=== PATIENT | female | born 1985 | race Caucasian/White ===

== ENCOUNTER 2016-10-16 05:55 | Inpatient (IN) | payer MEDICAID ==
[2016-10-16] VITALS (9 sets, daily range): BP systolic 126–194; BP diastolic 74–110; PULSE 82–99; RESP 16–20; TEMP 97.5–98.4; O2SAT 96–100
[~2016-10-16] VITALS: Ht 170.2 cm; Wt 98.0 kg
[2016-10-16] MEDS ORDERED: SODIUM CHLOR 0.9% 1000 ML INJ 1,000 ML IV SCH (06:19)
[2016-10-16] MEDS ORDERED: KETOROLAC TROMETHAMINE 30 MG/ML (IVP) VIAL IVP ONE (06:30)
[2016-10-16] MEDS ORDERED: ONDANSETRON HCL 4 MG/2 ML VIAL IVP ONE (06:30)
[2016-10-16] MEDS ORDERED: SODIUM CHLORIDE 0.9% FLUSH 10 ML FLUSH IV FLUSH PRN (06:30)
[2016-10-16 06:43] LABS: AUTOMATED NEUTROPHIL # 11.6 TH/MM3 (1.8-7.7); BASOPHIL # 0.1 TH/MM3 (0-0.2); BASOPHIL % 0.5 % (0.0-2.0); EOSINOPHIL # 0.2 TH/MM3 (0-0.4); EOSINOPHIL % 1.1 % (0.0-4.0); HEMATOCRIT 40.8 % (35.0-46.0); HEMO FLAGS DIFF FINAL; LYMPH % 12.2 % (9.0-44.0); LYMPHOCYTE # 1.7 TH/MM3 (1.0-4.8); MEAN CELL VOLUME 85.6 FL (80.0-100.0); MEAN CORPUSCULAR HEMOGLOBIN 28.6 PG (27.0-34.0); MEAN CORPUSCULAR HGB CONC 33.4 % (32.0-36.0); MONO % 4.2 % (0.0-8.0); PLATELET COUNT 192 TH/MM3 (150-450); RED BLOOD COUNT 4.77 MIL/MM3 (4.00-5.30); RED CELL DISTRIBUTION WIDTH 13.7 % (11.6-17.2); WHITE BLOOD COUNT 14.1 TH/MM3 (4.0-11.0)
--- NOTE | 2016-10-16 06:43 | PD ---
HPI Chief Complaint: Flank/Kidney Pain Time Seen by Provider: 06:01 Travel History International Travel<30 days: No Contact w/Intl Traveler<30days: No Traveled to known affect area: No History of Present Illness HPI Patient is a 30-year-old female presents emergency Department with right flank pain. Patient states she has a history of kidney stones and had a CAT scan and lithotripsy in July of this year. Patient states that there were 2 small fragments lithotripsy which were left in place. She states the pain started last night and she was unable to sleep, it was mild nausea and no fever no dysuria. She denies any vaginal bleeding or vaginal discharge. States his pain is moderate to severe. Gradually worsening. [facility] Past Medical History Kidney Stones: Yes Integumentary: Yes ?: Not LMP: 10/16/16 Past Surgical History Other Surgery: Yes (lithotripsy ) Social History Alcohol Use: Yes Tobacco Use: No Substance Use: Yes (marijuana ) Allergies-Medications (Allergen,Severity, Reaction): Coded Allergies: No Known Allergies (Unverified , 10/16/16) Reported Meds & Prescriptions Reported Meds & Active Scripts Active No Active Prescriptions or Reported Medications Review of Systems Except as stated in HPI: all other systems reviewed are Neg Physical Exam Narrative GENERAL: Well-developed well-nourished, appears minimally uncomfortable in no obvious distress. SKIN: Focused skin assessment warm/dry. HEAD: Atraumatic. Normocephalic. EYES: Pupils equal and round. No scleral icterus. No injection or drainage. ENT: No nasal bleeding or discharge. Mucous membranes pink and moist. NECK: Trachea midline. No JVD. CARDIOVASCULAR: Regular rate and rhythm. No murmur appreciated. RESPIRATORY: No accessory muscle use. Clear to auscultation. Breath sounds equal bilaterally. GASTROINTESTINAL: Abdomen soft, non-tender, nondistended. Hepatic and splenic margins not palpable. Minimal right-sided CVA tenderness. Abdomen is otherwise benign. MUSCULOSKELETAL: No obvious deformities. No clubbing. No cyanosis. No edema. NEUROLOGICAL: Awake and alert. No obvious cranial nerve deficits. Motor grossly within normal limits. Normal speech. PSYCHIATRIC: Appropriate mood and affect; insight and judgment normal. Data Data Last Documented VS Vital Signs Date Time Temp Pulse Resp B/P Pulse Ox O2 Delivery O2 Flow Rate FiO2 10/16/16 06:25 99 Room Air 10/16/16 05:56 98.0 87 194/110 Orders Urinalysis - C+S If Indicated (10/16/16 06:01) Ed Urine Pregnancytest Poc (10/16/16 06:01) Complete Blood Count With Diff (10/16/16 06:19) Comprehensive Metabolic Panel (10/16/16 06:19) Iv Access Insert/Monitor (10/16/16 06:19) Ecg Monitoring (10/16/16 06:19) Oximetry (10/16/16 06:19) Ondansetron Inj (Zofran Inj) (10/16/16 06:30) Sodium Chlor 0.9% 1000 Ml Inj (Ns 1000 M (10/16/16 06:19) Sodium Chloride 0.9% Flush (Ns Flush) (10/16/16 06:30) Ketorolac Inj (Toradol Inj) (10/16/16 06:30) Ct Abd/Pel W/O Iv Contrast (10/16/16 ) MDM Medical Decision Making Medical Screen Exam Complete: Yes Emergency Medical Condition: Yes Differential Diagnosis Kidney stone, UTI, polynephritis, obstructive uropathy. Narrative Course Patient roomed in the emergency department, given Toradol after test negative. She is requesting more for pain medicine at this point she has indications for CAT scan is thus ordered. Basic labs and UA are pending at 07 100 shift change. The patient was discussed with the oncoming provider Dr. Palafox to follow-up patient's workup and disposition her appropriately. Scripts No Active Prescriptions or Reported Meds Selvin Stringer MD Oct 16, 2016 06:43
[2016-10-16] MEDS ORDERED: MORPHINE SULFATE 8 MG/ML INJ IV PUSH ONE (07:00)
[2016-10-16 07:09] LABS: ANION GAP 8 MEQ/L (5-15); AST (GOT) 13 U/L (15-37); BLOOD UREA NITROGEN 15 MG/DL (7-18); CHLORIDE 108 MEQ/L (98-107); GLOMERULAR FILTRATION RATE 61 ML/MIN (>89); POTASSIUM 3.8 MEQ/L (3.5-5.1); SODIUM (NA) 139 MEQ/L (136-145)
--- NOTE | 2016-10-16 07:09 | RADRPT ---
EXAM DATE/TIME: 10/16/2016 06:43 [facility] COMPARISON: No previous studies available for comparison. INDICATIONS : Right flank pain. ORAL CONTRAST: No oral contrast ingested. RADIATION DOSE: 8.43 CTDIvol (mGy) MEDICAL HISTORY : Renal calculi. SURGICAL HISTORY : None. ENCOUNTER: Initial ACUITY: 1 day PAIN SCALE: 4/10 LOCATION: Right flank TECHNIQUE: Volumetric scanning of the abdomen and pelvis was performed. Using automated exposure control and ad justment of the mA and/or kV according to patient size, radiation dose was kept as low as reasonably achievable to obtain optimal diagnostic quality images. DICOM format image data is available electro nically for review and comparison. FINDINGS: Right side: Abnormal there is enlargement of the right kidney, perigastric and duration, severe hydronephrosis an d an obstructing stone in the region of the ureteropelvic junction measuring 1.0 cm in dimension. Th ere are also 2 calcified stones in the right pelvis, in the expected location of the distal right ure ter, measuring 5 mm and 4 mm. Left side: There is a nonobstructing stone in the lower pole measuring 3 mm. The left ureter is normal in dimen emilia without calcified stones. Bladder: Smooth contour. No calcifications within the lumen. Other: No dilated loops of small or large bowel. No calcified gallstones. The abdominal aorta is normal di mension. CONCLUSION: Abnormal renal colic scan demonstrating severe right-sided hydronephrosis and induration of the perin ephric fat with 3 obstructing stones,, one located at the ureteropelvic junction and 2 in the distal right ureter. Bigg Marcano MD on October 16, 2016 at 7:02 Board Certified Radiologist. This report was verified electronically.
[2016-10-16 07:12] LABS: ALKALINE PHOSPHATASE 87 U/L (45-117); ALT (GPT) 25 U/L (10-53); TOTAL BILIRUBIN ADULT 0.3 MG/DL (0.2-1.0)
--- NOTE | 2016-10-16 07:25 | PD ---
Physical Exam Date Seen by Provider: Oct 16, 2016 Time Seen by Provider: 07:25 Narrative 30-year-old female came to the emergency room with history of right flank pain that started last night. Patient has history of recurrent kidney stones. She had a lithotripsy done in June by her urologist from [place]. Patient is here visiting her parents. She was seen by the previous ER physician. Please refer to his notes regarding further details and history and physical. Case was signed out to me to follow-up on the CAT scan and blood test results. CAT scan shows a large 1 cm stone at the UPJ with significant perinephric stranding and obstruction. There are 2 further stones in the distal ureter near UVJ that are 4 mm and 5 mm each respectively. Patient continues to be in pain. I discussed the case with Dr. Ramirez who is on for urology. He wants the patient admitted for pain control and the medical service and he will consult on the patient. Awaiting for the hospitalist to call back. Patient and her mother were told about the findings and the plan and they're in agreement. Data Data Last Documented VS Vital Signs Date Time Temp Pulse Resp B/P Pulse Ox O2 Delivery O2 Flow Rate FiO2 10/16/16 07:20 18 10/16/16 07:11 82 183/109 98 10/16/16 06:25 Room Air 10/16/16 05:56 98.0 Orders Urinalysis - C+S If Indicated (10/16/16 06:01) Ed Urine Pregnancytest Poc (10/16/16 06:01) Complete Blood Count With Diff (10/16/16 06:19) Comprehensive Metabolic Panel (10/16/16 06:19) Iv Access Insert/Monitor (10/16/16 06:19) Ecg Monitoring (10/16/16 06:19) Oximetry (10/16/16 06:19) Ondansetron Inj (Zofran Inj) (10/16/16 06:30) Sodium Chlor 0.9% 1000 Ml Inj (Ns 1000 M (10/16/16 06:19) Sodium Chloride 0.9% Flush (Ns Flush) (10/16/16 06:30) Ketorolac Inj (Toradol Inj) (10/16/16 06:30) Ct Abd/Pel W/O Iv Contrast (10/16/16 ) Morphine Inj (Morphine Inj) (10/16/16 07:00) Consult Urology (10/16/16 ) Diet Npo (10/16/16 Breakfast) Vital Signs (Adult) LAUREN.Q4H (10/16/16 07:50) Sodium Chlor 0.9% 1000 Ml Inj (Ns 1000 M (10/16/16 08:00) Ondansetron Inj (Zofran Inj) (10/16/16 08:00) Hydromorphone Pf Inj (Dilaudid Pf Inj) (10/16/16 08:00) Admit Order (Ed Use Only) (10/16/16 07:52) Labs Laboratory Tests Test 10/16/16 10/16/16 06:07 06:25 Urine Color RED Urine Turbidity CLOUDY Urine pH 6.0 Urine Specific [place] 1.009 Urine Protein 30 mg/dL Urine Glucose (UA) NEG mg/dL Urine Ketones NEG mg/dL Urine Occult Blood MOD Urine Nitrite NEG Urine Bilirubin NEG Urine Urobilinogen LESS THAN 2.0 MG/DL Urine Leukocyte Esterase TRACE Urine RBC /hpf Urine WBC 6 /hpf Urine Squamous Epithelial 1 /hpf Cells Urine Bacteria OCC /hpf Microscopic Urinalysis Comment CULT NOT INDICATED White Blood Count 14.1 TH/MM3 Red Blood Count 4.77 MIL/MM3 Hemoglobin 13.6 GM/DL Hematocrit 40.8 % Mean Corpuscular Volume 85.6 FL Mean Corpuscular Hemoglobin 28.6 PG Mean Corpuscular Hemoglobin 33.4 % Concent Red Cell Distribution Width 13.7 % Platelet Count 192 TH/MM3 Mean Platelet Volume 9.9 FL Neutrophils (%) (Auto) 82.0 % Lymphocytes (%) (Auto) 12.2 % Monocytes (%) (Auto) 4.2 % Eosinophils (%) (Auto) 1.1 % Basophils (%) (Auto) 0.5 % Neutrophils # (Auto) 11.6 TH/MM3 Lymphocytes # (Auto) 1.7 TH/MM3 Monocytes # (Auto) 0.6 TH/MM3 Eosinophils # (Auto) 0.2 TH/MM3 Basophils # (Auto) 0.1 TH/MM3 CBC Comment DIFF FINAL Differential Comment Sodium Level 139 MEQ/L Potassium Level 3.8 MEQ/L Chloride Level 108 MEQ/L Carbon Dioxide Level 23.0 MEQ/L Anion Gap 8 MEQ/L Blood Urea Nitrogen 15 MG/DL Creatinine 1.05 MG/DL Estimat Glomerular Filtration 61 ML/MIN Rate Random Glucose 97 MG/DL Calcium Level 9.3 MG/DL Total Bilirubin 0.3 MG/DL Aspartate Amino Transf 13 U/L (AST/SGOT) Alanine Aminotransferase 25 U/L (ALT/SGPT) Alkaline Phosphatase 87 U/L Total Protein 7.4 GM/DL Albumin 3.7 GM/DL MDM Supervised Visit with KERRY: No Physician Communication Physician Communication Dr. Ramirez Diagnosis Primary Impression: Renal colic on left side Additional Impressions: Ureteral calculi Intractable pain Hydronephrosis Qualified Code: Q62.0 - Hydronephrosis with ureteropelvic junction (UPJ) obstruction Admitting Information Admitting Physician Requests: Admit Scripts No Active Prescriptions or Reported Meds Aidee Palafox MD Oct 16, 2016 07:25
[2016-10-16 07:58] LABS: BACTERIA, URINE OCC /hpf; BLOOD, URINE MOD (NEG); COMMENT (UR) CULT NOT INDICATED; CULTURE IF INDICATED CULT NOT INDICATED; GLUCOSE,URINE NEG (NEG); KETONE, URINE NEG (NEG); NITRITE,URINE NEG (NEG)
[2016-10-16 07:59] LABS: URINE COLOR RED (YELLW/STRAW)
[2016-10-16 08:00] LABS: SQUAMOUS EPITHELIAL CELL URINE 1 /hpf (0-5)
[2016-10-16] MEDS ORDERED: ONDANSETRON HCL 4 MG/2 ML VIAL IV PUSH PRN (08:00)
[2016-10-16] MEDS: HYDROmorphone HCL PF 1 MG/ML VIAL IV PUSH PRN ×2 (08:49→08:58)
--- NOTE | 2016-10-16 09:12 | HHI.HP ---
[facility] No Primary Care Physician Admission Diagnosis ureteral Calculi, renal colic, intractable pain Diagnoses: (1) Ureteral calculi Diagnosis: Principal (2) Hydronephrosis Diagnosis: Principal Chief Complaint: right flank pain Travel History International Travel<30 Days: No Contact w/Intl Traveler <30 Da: No Traveled to Known Affected Are: No History of Present Illness patient is a 30 y/o female with history of nephrolithiasis- s/p lithotripsy in June, presented to ER with right flank pain. she says that the pain started at 10 last night and gradually got worse over night to the extent that she decided to come to ER. she had some nausea and had an episode of emesis earlier today. she had some chills but no fever. she denies any dysuria. Review of Systems Constitutional: COMPLAINS OF: Chills, DENIES: Fever, Weight loss, Night Sweats Eyes: DENIES: Blurred vision, Diplopia, Vision loss, Double Vision Ears, nose, mouth, throat: DENIES: Tinnitus, Vertigo, Throat pain, Epistaxis Respiratory: DENIES: Apneas, Cough, Snoring, Wheezing, Hemoptysis, Sputum production, Shortness of breath Cardiovascular: DENIES: Chest pain, Palpitations, Syncope, Dyspnea on Exertion , PND, Lower Extremity Edema, Orthopnea, Claudication Gastrointestinal: COMPLAINS OF: Abdominal pain, Nausea, Vomiting, DENIES: Black stools, Bloody stools, Constipation, Diarrhea, Difficulty Swallowing, Anorexia Genitourinary: DENIES: Urinary frequency, Urgency, Hematuria, Dysuria Musculoskeletal: DENIES: Joint pain, Muscle aches, Stiffness, Joint Swelling Integumentary: DENIES: Rash Neurologic: DENIES: Abnormal gait, Headache, Localized weakness, Paresthesias, Seizures, Speech Problems, Tremor, Poor Balance Psychiatric: DENIES: Anxiety, Confusion, Mood changes, Depression, Hallucinations, Agitation, Suicidal Ideation, Homicidal Ideation, Delusions Past Family Social History Past Medical History nephrolithiasis psoriasis Past Surgical History lithotripsy Reported Medications none Allergies: Coded Allergies: No Known Allergies (Unverified , 10/16/16) Active Ordered Medications Current Medications Ondansetron HCl 4 mg 4 mg ONCE ONCE IVP Last administered on 10/16/16 06:28; Start 10/16/16 at 06:30; Stop 10/16/16 at 06:31; Status DC Sodium Chloride (NS 1000 ml Inj) 1,000 ml @ 1,000 mls/hr Q1H IV Last administered on 10/16/16 06:28; Start 10/16/16 at 06:19; Stop 10/16/16 at 07:18 ; Status DC Sodium Chloride (NS Flush) 2 ml UNSCH PRN IV FLUSH FLUSH AFTER USING IV ACCESS ; Start 10/16/16 at 06:30 Ketorolac Tromethamine (Toradol Inj) 30 mg ONCE ONCE IVP Last administered on 10/16/16 06:28; Start 10/16/16 at 06:30; Stop 10/16/16 at 06:31; Status DC Morphine Sulfate 6 mg 6 mg ONCE ONCE IV PUSH Last administered on 10/16/16 07 :13; Start 10/16/16 at 07:00; Stop 10/16/16 at 07:01; Status DC Sodium Chloride (NS 1000 ml Inj) 1,000 ml @ 100 mls/hr Q10H IV ; Start at 08:00 Ondansetron HCl (Zofran Inj) 4 mg Q8HR PRN IV PUSH NAUSEA; Start 10/16/16 at 08 :00 Hydromorphone HCl (Dilaudid Pf Inj) 0.5 mg Q4H PRN IV PUSH PAIN 1-10 Last administered on 10/16/16 08:58; Start 10/16/16 at 08:00 Family History not significant. Social History drinks occasionally- smokes pot occasionally. Physical Exam Vital Signs Vital Signs Date Time Temp Pulse Resp B/P Pulse Ox O2 Delivery O2 Flow Rate FiO2 10/16/16 08:33 83 18 146/94 99 Room Air 10/16/16 07:20 18 10/16/16 07:20 18 10/16/16 07:11 82 16 183/109 98 10/16/16 06:25 99 Room Air 10/16/16 05:56 98.0 87 194/110 100 Room Air Physical Exam GENERAL: This is a well-nourished, well-developed patient, in no apparent distress. SKIN: No rashes, ecchymoses or lesions. Cool and dry. HEAD: Atraumatic. Normocephalic. No temporal or scalp tenderness. EYES: Pupils equal round and reactive. Extraocular motions intact. No scleral icterus. No injection or drainage. ENT: Nose without bleeding, purulent drainage or septal hematoma. Throat without erythema, tonsillar hypertrophy or exudate. Uvula midline. Airway patent. NECK: Trachea midline. No JVD or lymphadenopathy. Supple, nontender, no meningeal signs. CARDIOVASCULAR: Regular rate and rhythm without murmurs, gallops, or rubs. RESPIRATORY: Clear to auscultation. Breath sounds equal bilaterally. No wheezes , rales, or rhonchi. GASTROINTESTINAL: Abdomen soft, non-tender, nondistended. No hepato-splenomegaly , or palpable masses. No guarding. MUSCULOSKELETAL:right flank tenderness. NEUROLOGICAL: Awake and alert. Cranial nerves II through XII intact. Motor and sensory grossly within normal limits. Five out of 5 muscle strength in all muscle groups. Normal speech. Laboratory Laboratory Tests Test 10/16/16 10/16/16 06:07 06:25 Urine Color RED Urine Turbidity CLOUDY Urine pH 6.0 Urine Specific [place] 1.009 Urine Protein 30 Urine Glucose (UA) NEG Urine Ketones NEG Urine Occult Blood MOD Urine Nitrite NEG Urine Bilirubin NEG Urine Urobilinogen LESS THAN 2.0 Urine Leukocyte Esterase TRACE Urine RBC Urine WBC 6 Urine Squamous Epithelial 1 Cells Urine Bacteria OCC Microscopic Urinalysis Comment CULT NOT INDICATED White Blood Count 14.1 Red Blood Count 4.77 Hemoglobin 13.6 Hematocrit 40.8 Mean Corpuscular Volume 85.6 Mean Corpuscular Hemoglobin 28.6 Mean Corpuscular Hemoglobin 33.4 Concent Red Cell Distribution Width 13.7 Platelet Count 192 Mean Platelet Volume 9.9 Neutrophils (%) (Auto) 82.0 Lymphocytes (%) (Auto) 12.2 Monocytes (%) (Auto) 4.2 Eosinophils (%) (Auto) 1.1 Basophils (%) (Auto) 0.5 Neutrophils # (Auto) 11.6 Lymphocytes # (Auto) 1.7 Monocytes # (Auto) 0.6 Eosinophils # (Auto) 0.2 Basophils # (Auto) 0.1 CBC Comment DIFF FINAL Differential Comment Sodium Level 139 Potassium Level 3.8 Chloride Level 108 Carbon Dioxide Level 23.0 Anion Gap 8 Blood Urea Nitrogen 15 Creatinine 1.05 Estimat Glomerular Filtration 61 Rate Random Glucose 97 Calcium Level 9.3 Total Bilirubin 0.3 Aspartate Amino Transf 13 (AST/SGOT) Alanine Aminotransferase 25 (ALT/SGPT) Alkaline Phosphatase 87 Total Protein 7.4 Albumin 3.7 Result Diagram: 10/16/16 0625 10/16/16 0625 Imaging Last Impressions Abdomen/Pelvis CT 10/16/16 0000 Signed Impressions: Service Date/Time: Sunday, October 16, 2016 06:43 - CONCLUSION: Abnormal renal colic scan demonstrating severe right-sided hydronephrosis and induration of the perinephric fat with 3 obstructing stones,, one located at the ureteropelvic junction and 2 in the distal right ureter. Bigg Marcano MD Assessment and Plan Assessment and Plan A/P - nephrolithiasis with severe right sided hydronephrosis keep NPO for now and start IV fluid- continue with pain control and antiemetics as needed. Urology consulted. -leukocytosis-likely reactive- afebrile- will monitor. -psoriasis- f/u as outpatient. Discussed Condition With ER physician and the patient. Problem Qualifiers (1) Hydronephrosis: Qualified Code: Q62.0 - Hydronephrosis with ureteropelvic junction (UPJ) obstruction Lori Stuart MD Oct 16, 2016 09:12
[2016-10-16] MEDS ORDERED: HYDROmorphone HCL PF 1 MG/ML VIAL IV PUSH PRN (09:15)
[2016-10-16] MEDS: SODIUM CHLOR 0.9% 1000 ML INJ 1,000 ML IV SCH ×2 (09:29→19:00)
[2016-10-16] MEDS ORDERED: PROPOFOL 200 MG/20 ML AMP IV ONE (12:00)
[2016-10-16] MEDS ORDERED: PHENYLEPH/NS 1000 MCG/10 ML SYR IV ONE (12:00)
[2016-10-16] MEDS ORDERED: ONDANSETRON HCL 4 MG/2 ML VIAL IV PUSH ONE (12:00)
--- NOTE | 2016-10-16 13:33 | MB ---
cc: BRIAN BAKER MD DATE OF CONSULTATION: 10/16/2016 REASON FOR CONSULTATION 1. Right ureteral calculi with hydronephrosis. 2. Right flank pain. HISTORY OF PRESENT ILLNESS The patient is a 30-year-old female with a longstanding history of kidney stones, who presented to the ER earlier this morning with complaints of sharp stabbing right flank pain radiating into her right groin since last night. She describes the pain as 10/10 at its worse. She also had subjective chills and nausea, vomiting earlier last night. She denied any dysuria or hematuria in the ER. She had a CT of the abdomen and pelvis without contrast done which showed several 4-5 mm stones in her distal right ureter as well as a 1 cm right UPJ stone with moderate hydronephrosis. She was admitted for pain control and urology was consulted. The patient states she recently had a lithotripsy in June in [place] and states she was stone-free at that time. She has had four episodes of stones in the past requiring surgery each time. She denies ever having a metabolic work-up for her stone disease. Her pain has slightly improved down to a 7/10 with the help of pain medication and her nausea has resolved. She has occasional urinary tract infections. REVIEW OF SYSTEMS See HPI; otherwise all systems reviewed are negative. PAST MEDICAL HISTORY 1. Psoriasis. 2. Nephrolithiasis. PAST SURGICAL HISTORY Lithotripsy. ALLERGIES No known drug allergies. MEDICATIONS Home medications are none. FAMILY HISTORY Denies urolithiasis or genitourinary malignancy. SOCIAL HISTORY She drinks occasionally and smokes pot occasionally. Denies tobacco use. PHYSICAL EXAMINATION VITAL SIGNS: Temperature 98.3, pulse 93, respiratory rate 16, BP 163/95, satting 100% on room air. GENERAL: This is an alert and oriented x3, in no apparent distress, pleasant cooperative lady who appears her stated age. HEAD: Normocephalic, atraumatic. EYES: No scleral icterus. Extraocular muscles intact. NECK: Supple. Trachea is midline. No JVD. SKIN: No ulcers or rashes. [place] and moist. LUNGS: Clear to auscultation bilaterally. No wheezes, rales or rhonchi. HEART: Regular rhythm. No murmurs, gallops or rubs. ABDOMEN: Soft, obese, nontender, nondistended. Positive bowel sounds. GENITOURINARY: No CVA tenderness bilaterally. Pelvic exam not indicates at this time. EXTREMITIES: Nontender. No clubbing, cyanosis or edema. PSYCH: Normal affect. NEUROLOGIC: Cranial nerves II through XII intact. Strength 5/5 in all four extremities. LABORATORY White count 14.1, hemoglobin 13.6, hematocrit 40.8, platelet count 192. Sodium 139, potassium 3.9, chloride 108, bicarb 23, BUN 15, creatinine 1.05. Urine showed pH 6.0, moderate blood, trace leukocyte esterase. IMAGING CT abdomen and pelvis without contrast: Images were reviewed. Agree with radiologist's report. The patient has multiple stones in her right ureter including two 5 mm distal stones as well as a 1 cm stone in her right UPJ with moderate hydronephrosis. ASSESSMENT The patient is a 30-year-old female with a longstanding history of kidney stones, who presents with acute onset of right flank pain and found to have multiple obstructing right ureteral calculi. PLAN Will keep the patient n.p.o. and schedule her for a cystoscopy, right uteroscopy, laser lithotripsy and stent placement under general anesthetic later today. I have discussed the risks, benefits, alternatives and potential complications of the procedure with her including inability to treat the stones, risk of recurrent stones, ureteral stricture, and superintendent terminal indwelling stent and possible nephrostomy tubes. She understands these risks. All questions were answered. Informed consent was obtained. Brian Baker MD EMKomal/AJSS /1:06 PM /1:14 PM
[2016-10-16] MEDS ORDERED: MIDAZOLAM HCL 2 MG/2 ML VIAL ONE (16:11)
[2016-10-16] MEDS ORDERED: HYDROmorphone HCL PF 2 MG/ML VIAL ONE ×2 (16:11→16:43)
[2016-10-16] MEDS ORDERED: FAMOTIDINE 20 MG/2 ML VIAL ONE (16:12)
[2016-10-16] MEDS ORDERED: DEXAMETHASONE SOD PHOS 4 MG/ML VIAL ONE (16:12)
[2016-10-16] MEDS ORDERED: ceFAZolin INJ 1,000 MG VIAL ONE (16:37)
[2016-10-16] MEDS ORDERED: ACETAMINOPHEN 1000 MG/100 ML VIAL IV ONE (16:42)
[2016-10-16] MEDS ORDERED: ceFAZolin INJ 1,000 MG VIAL IV ONE (17:06)
[2016-10-16] MEDS ORDERED: IOHEXOL 350 MG/ML 10 ML VIAL (for RAD DIAG) OTHER ONE (17:11)
--- NOTE | 2016-10-16 17:53 | PD.OP ---
Operative Report Date of Surgery: Oct 16, 2016 Preoperative Diagnosis: Right ureteral calculi with hydronephrosis Postoperative Diagnosis: Procedure: cystoscopy, right ureteroscopy, laser lithotripsy, stone removal, stent insertion; bladder biopsy with fulguration Surgeon: Brian Ramirez Rendering Equipment Tender(s): N/A Operation and Findings: all 3 ureteral calculi treated, fragments removed. Stent left to help with postoperative ureteral edema, small residual fragments within kidney multiple tiny lesions seen within bladder, likely cobblestoning related to UTI/ inflammation; small biopsy taken. Brian Ramirez MD Oct 16, 2016 17:53
[2016-10-16] MEDS ORDERED: BELLADONNA ALKALOIDS/OPIUM 60 MG SUPP RECTAL PRN (18:00)
[2016-10-16] MEDS: KETOROLAC TROMETHAMINE 30 MG/ML (IVP) VIAL IV PUSH SCH (18:45)
[2016-10-17] MEDS: KETOROLAC TROMETHAMINE 30 MG/ML (IVP) VIAL IV PUSH SCH ×4 (00:59→17:49)
[2016-10-17] MEDS: SODIUM CHLOR 0.9% 1000 ML INJ 1,000 ML IV SCH ×2 (04:00→15:58)
[2016-10-17 04:34] VITALS: BP 167/97; PULSE 80; RESP 20; TEMP 99.6; O2SAT 98
[2016-10-17] MEDS: ACETAMINOPHEN 325 MG TAB PO PRN ×2 (07:02→17:47)
--- NOTE | 2016-10-17 07:09 | RADRPT ---
EXAM DATE/TIME: 10/17/2016 06:48 [facility] COMPARISON: No previous studies available for comparison. INDICATIONS : Fever, cough. MEDICAL HISTORY : None. SURGICAL HISTORY : None. ENCOUNTER: Initial ACUITY: 1 day PAIN SCORE: 0/10 LOCATION: Bilateral chest FINDINGS: A single view of the chest demonstrates minimal consolidation in the left retrocardiac region atelect asis versus pneumonia . The cardiomediastinal contours are unremarkable. Osseous structures are int act. CONCLUSION: Minimal consolidation in the left retrocardiac region atelectasis versus pneumonia. Nilo Prince MD on October 17, 2016 at 7:07 Board Certified Radiologist. This report was verified electronically.
[2016-10-17 07:44] VITALS: BP 133/72; PULSE 106; RESP 18; TEMP 98.5; O2SAT 93
[2016-10-17] MEDS: CIPROFLOXACIN 400 MG PREMIX 200 ML IV SCH ×2 (08:23→21:25)
[2016-10-17 11:17] LABS: AUTOMATED NEUTROPHIL # 8.5 TH/MM3 (1.8-7.7); BASOPHIL # 0.1 TH/MM3 (0-0.2); BASOPHIL % 0.7 % (0.0-2.0); EOSINOPHIL # 0.1 TH/MM3 (0-0.4); EOSINOPHIL % 0.7 % (0.0-4.0); HEMATOCRIT 36.9 % (35.0-46.0); HEMO FLAGS DIFF FINAL; LYMPH % 9.5 % (9.0-44.0); MEAN CORPUSCULAR HEMOGLOBIN 29.2 PG (27.0-34.0); MONO % 4.8 % (0.0-8.0); NEUT % 84.3 % (16.0-70.0); PLATELET COUNT 163 TH/MM3 (150-450); RED BLOOD COUNT 4.29 MIL/MM3 (4.00-5.30); WHITE BLOOD COUNT 10.1 TH/MM3 (4.0-11.0)
[2016-10-17 11:52] VITALS: BP 140/83; PULSE 116; RESP 20; TEMP 98.5; O2SAT 100
[2016-10-17] MEDS ORDERED: ACETAMINOPHEN/HYDROcodone 325 MG/5 MG TAB PO PRN (12:00)
[2016-10-17 12:04] LABS: BICARBONATE 26.5 MEQ/L (21.0-32.0); POTASSIUM 3.4 MEQ/L (3.5-5.1)
--- NOTE | 2016-10-17 13:01 | HHI.PR ---
Subjective Patient symptoms today low grade fever overnight. Pain much improved. Has some dysuria. Denies nausea, vomiting. Objective Vital Signs Vital Signs Date Time Temp Pulse Resp B/P Pulse Ox O2 Delivery O2 Flow Rate FiO2 10/17/16 11:52 98.5 116 20 140/83 100 10/17/16 08:02 20 10/17/16 07:44 98.5 106 18 133/72 93 10/17/16 07:28 20 10/17/16 04:34 99.6 80 20 167/97 98 10/16/16 23:13 98.2 89 20 126/74 96 10/16/16 20:08 97.5 94 18 141/87 96 10/16/16 19:20 87 16 95 Nasal Cannula 2 10/16/16 19:15 98.2 89 16 123/72 95 Nasal Cannula 2 10/16/16 19:00 90 15 120/71 94 Nasal Cannula 2 10/16/16 18:45 92 15 126/74 94 Nasal Cannula 2 10/16/16 18:30 95 15 127/70 98 Nasal Cannula 3 10/16/16 18:15 98 14 124/68 96 Nasal Cannula 3 10/16/16 18:07 100.1 108 11 132/64 94 Nasal Cannula 3 10/16/16 15:16 98.4 99 16 142/87 98 Result Diagram: 10/17/16 1046 10/17/16 1046 Imaging Last 24 hours Impressions Chest X-Ray 10/17/16 0000 Signed Impressions: Service Date/Time: Monday, October 17, 2016 06:48 - CONCLUSION: Minimal consolidation in the left retrocardiac region atelectasis versus pneumonia. Nilo Prince MD Objective Remarks NAD. A/O x 3 abd soft Medications and IVs Current Medications Medications (Trade) Dose Ordered Sig/Callie Route Start Time Stop Time Status Last Admin Sodium Chloride 2 ml 2 ml UNSCH PRN IV FLUSH 10/16/16 06:30 10/16/16 21:23 (NS 1000 ml Inj) 1,000 ml @ 100 mls/hr Q10H IV 10/16/16 08:00 10/16/16 19:00 (Zofran Inj) 4 mg Q8HR PRN IV PUSH 10/16/16 08:00 10/16/16 21:23 (Dilaudid Pf Inj) 1 mg Q4H PRN IV PUSH 10/16/16 09:15 10/16/16 11:01 (Toradol Inj) 30 mg Q6HR IV PUSH 10/16/16 18:00 10/17/16 18:00 10/17/16 12:04 (B & O Supp) 60 mg Q6HR PRN RECTAL 10/16/16 18:00 Acetaminophen 650 mg 650 mg Q4H PRN PO 10/17/16 06:45 10/17/16 07:02 (Cipro 400 Mg Premix) 200 ml @ 200 mls/hr Q12H IV 10/17/16 08:00 10/17/16 08:23 ([place] 5-325 Mg) 1 tab Q4H PRN PO 10/17/16 12:00 UNV ([place] 7.5-325 Mg) 1 tab Q4H PRN PO 10/17/16 12:00 UNV Assessment and Plan Assessment and Plan POD#1 cystoscopy, right ureteroscopy, laser lithotripsy, stone removal stent insertion; bladder biopsy with fulguration -she is doing much better. -Urinary symptoms stent related -Check PTH, Uric Acid -Antibiotics per Primary -stent removed as outpatient. Brian Ramirez MD Oct 17, 2016 13:01
--- NOTE | 2016-10-17 14:08 | HHI.PR ---
Subjective Remarks Follow up for obstructing nephrolithiasis. The patient reports continued right flank pain however much improved compared to previous days. She reports subjective fevers and temperature of 103 overnight however this is not documented. She does report some burning and pain with urination but denies any difficulty urinating with good urine output. She is tolerating oral intake. Denies any other medical complaints at this time. She is worried about being able to follow up with a urologist for ureteral stent removal. She states she is from [place] and nobody would accept her insurance to remove the stent. Objective Vitals Vital Signs Date Time Temp Pulse Resp B/P Pulse Ox O2 Delivery O2 Flow Rate FiO2 10/17/16 11:52 98.5 116 20 140/83 100 10/17/16 08:02 20 10/17/16 07:44 98.5 106 18 133/72 93 10/17/16 07:28 20 10/17/16 04:34 99.6 80 20 167/97 98 10/16/16 23:13 98.2 89 20 126/74 96 10/16/16 20:08 97.5 94 18 141/87 96 10/16/16 19:20 87 16 95 Nasal Cannula 2 10/16/16 19:15 98.2 89 16 123/72 95 Nasal Cannula 2 10/16/16 19:00 90 15 120/71 94 Nasal Cannula 2 10/16/16 18:45 92 15 126/74 94 Nasal Cannula 2 10/16/16 18:30 95 15 127/70 98 Nasal Cannula 3 10/16/16 18:15 98 14 124/68 96 Nasal Cannula 3 10/16/16 18:07 100.1 108 11 132/64 94 Nasal Cannula 3 10/16/16 15:16 98.4 99 16 142/87 98 I/O 10/16/16 10/16/16 10/16/16 10/17/16 10/17/16 10/17/16 07:00 15:00 23:00 07:00 15:00 23:00 Intake Total 1200 ml Output Total 0 ml Balance 1200 ml Intake IV Total 100 ml Other 1100 ml Output Urine Total 0 ml Estimated Blood Loss 0 ml Result Diagram: 10/17/16 1046 10/17/16 1046 Imaging Last Impressions Chest X-Ray 10/17/16 0000 Signed Impressions: Service Date/Time: Monday, October 17, 2016 06:48 - CONCLUSION: Minimal consolidation in the left retrocardiac region atelectasis versus pneumonia. Nilo Prince MD Abdomen/Pelvis CT 10/16/16 0000 Signed Impressions: Service Date/Time: Sunday, October 16, 2016 06:43 - CONCLUSION: Abnormal renal colic scan demonstrating severe right-sided hydronephrosis and induration of the perinephric fat with 3 obstructing stones,, one located at the ureteropelvic junction and 2 in the distal right ureter. Bigg Marcano MD Objective Remarks GENERAL: Well-nourished, well-developed female patient in [place]. SKIN: Warm and dry. No rash. CARDIOVASCULAR: Regular rate and rhythm. S1, S2 noted. No murmur appreciated. RESPIRATORY: No accessory muscle use. Clear to auscultation. Breath sounds equal bilaterally. GASTROINTESTINAL: Abdomen soft, non-tender, nondistended. Normoactive bowel sounds x4. MUSCULOSKELETAL: No obvious deformities. Extremities without clubbing, cyanosis , or edema. NEUROLOGICAL: Awake and alert. No obvious cranial nerve deficits. Motor grossly within normal limits. Normal speech. PSYCHIATRIC: Appropriate mood and affect; insight and judgment normal. Procedures 10/16/16 - Dr. Ramirez: cystoscopy, right ureteroscopy, laser lithotripsy, stone removal stent insertion; bladder biopsy with fulguration Medications and IVs Current Medications Medications (Trade) Dose Ordered Sig/Callie Route Start Time Stop Time Status Last Admin Sodium Chloride 2 ml 2 ml UNSCH PRN IV FLUSH 10/16/16 06:30 10/16/16 21:23 (NS 1000 ml Inj) 1,000 ml @ 100 mls/hr Q10H IV 10/16/16 08:00 10/16/16 19:00 (Zofran Inj) 4 mg Q8HR PRN IV PUSH 10/16/16 08:00 10/16/16 21:23 (Dilaudid Pf Inj) 1 mg Q4H PRN IV PUSH 10/16/16 09:15 10/16/16 11:01 (Toradol Inj) 30 mg Q6HR IV PUSH 10/16/16 18:00 10/17/16 18:00 10/17/16 12:04 (B & O Supp) 60 mg Q6HR PRN RECTAL 10/16/16 18:00 Acetaminophen 650 mg 650 mg Q4H PRN PO 10/17/16 06:45 10/17/16 07:02 (Cipro 400 Mg Premix) 200 ml @ 200 mls/hr Q12H IV 10/17/16 08:00 10/17/16 08:23 ([place] 5-325 Mg) 1 tab Q4H PRN PO 10/17/16 12:00 ([place] 7.5-325 Mg) 1 tab Q4H PRN PO 10/17/16 12:00 A/P Problem List: (1) Ureteral calculi ICD Code: N20.1 Status: Acute (2) Hydronephrosis ICD Code: N13.30 Status: Acute Assessment and Plan 30-year-old female with history of recurrent nephrolithiasis s/p lithotripsy in June, presents to the ER with right flank pain. Obstructive Nephrolithiasis with Severe Right Hydronephrosis: CT abd/pelvis images reviewed, shows abnormal renal colic scan demonstrating severe right- sided hydronephrosis and induration of the perinephric fat with 3 obstructing stones; 1 located at the ureteropelvic junction and 2 in the distal right ureter. -Urology consulted, seen by Dr. Ramirez -10/16 S/p cystoscopy, right ureteroscopy, laser lithotripsy, stone removal, stent insertion; bladder biopsy with fulguration -Started on antibiotics for UTI -Check PTH, uric acid to eval for recurrent stones -[place]/IV Dilaudid prn pain -outpatient f/up with urology for stent removal Sepsis with UTI: meets sepsis criteria with +leukocytosis WBC 14.1K, tachycardia HR 116, febrile, 103, source-UTI -blood cultures ordered and pending -continue antibiotics with IV Cipro -supportive treatment with IVF -check mandatory urine culture Leukocytosis: suspect secondary to UTI -continue antibiotics as above -repeat CBC with improvement, WBC 10K -monitor Psoriasis: chronic, outpatient follow up DVT Prophylaxis: teds/SCDs Discharge Planning Possible discharge in 1-2 days if stable and afebrile. Mandatory outpatient referral with urology. Problem Qualifiers (1) Hydronephrosis: Qualified Code: Q62.0 - Hydronephrosis with ureteropelvic junction (UPJ) obstruction Shala Camacho PA-C Oct 17, 2016 14:08
[2016-10-17 15:30] VITALS: TEMP 103
[2016-10-17] MEDS ORDERED: POTASSIUM CHLORIDE 20 MEQ CONTROLLED RELEASE TAB PO ONE (15:45)
[2016-10-17] MEDS: ACETAMINOPHEN/HYDROcodone 325 MG/7.5 MG TAB PO PRN (15:56)
[2016-10-17 17:36] VITALS: BP 140/81; PULSE 115; RESP 18; TEMP 101.5; O2SAT 92
[2016-10-17 20:47] VITALS: BP 130/78; PULSE 101; RESP 19; TEMP 98.8; O2SAT 96
[2016-10-17] MEDS: ACETAMIN 325 MG/BUTALBITAL 50 MG/CAFFEINE 40 MG TAB PO PRN (21:23)
[2016-10-18] VITALS (7 sets, daily range): BP systolic 132–157; BP diastolic 74–93; PULSE 111–127; RESP 18–20; TEMP 100.9–103.2; O2SAT 94–98
[2016-10-18 00:03] LABS: BLOOD, URINE MOD (NEG); CALCIUM OXALATE CRYSTALS,URINE RARE /hpf; GLUCOSE,URINE NEG (NEG); KETONE, URINE TRACE mg/dL (NEG); MUCUS URINE FEW /lpf (OCC); NITRITE,URINE NEG (NEG); PH, URINE 6.5 (5.0-8.5); URINE COLOR YELLOW (YELLW/STRAW)
[2016-10-18 00:05] LABS: COMMENT (UR) CULTURE INDICATED; CULTURE IF INDICATED CULTURE INDICATED
[2016-10-18] MEDS: SODIUM CHLOR 0.9% 1000 ML INJ 1,000 ML IV SCH ×3 (01:00→22:23)
[2016-10-18] MEDS: ACETAMINOPHEN 325 MG TAB PO PRN (01:30)
--- NOTE | 2016-10-18 06:17 | MP ---
cc: HEAVEN BAKER MD DATE OF SURGERY 10/17/2016 PREOPERATIVE DIAGNOSIS Right ureteral calculi with hydronephrosis. POSTOPERATIVE DIAGNOSIS Right ureteral calculi with hydronephrosis. PROCEDURE PERFORMED 1. Cystourethroscopy. 2. Right retrograde pyelogram. 3. Right ureteroscopy. 4. Laser lithotripsy. 5. Stone basketing and removal. 6. Insertion of right ureteral stent. 7. Bladder biopsy with fulguration. SURGEON MD James ANESTHESIA General. COMPLICATIONS None. PREOPERATIVE ANTIBIOTICS Ancef 2 grams IV. DRAINS 6 x 24 double-J right ureteral stent. ESTIMATED BLOOD LOSS Minimal. SPECIMENS 1. Right ureteral stone for analysis. 2. Bladder tissue for permanent. DISPOSITION Stable to Recovery. INDICATIONS The patient is a 30-year-old female with significant history of kidney stones who presented last night with complaints of right flank pain, nausea and subjective chills. The patient had a CT of the abdomen and pelvis without contrast done which showed multiple stones in her right ureter including two distal stones approximately 5-mm each as well as a 1-cm right UPJ stone with moderate hydronephrosis. Due to her persistent pain and number of stones, she elected to proceed with definitive treatment of her stones. After the risks, benefits and alternatives were explained to the patient, the patient elected to proceed. Informed consent was obtained. DETAILS OF THE PROCEDURE The patient was properly identified and brought back to the cystoscopy suite where she was laid supine on the cystoscopy table. A proper time-out was performed under the direction of Anesthesia. She was then induced under general anesthetic. Preop antibiotics of Ancef 2 grams IV were given prior to the start of the procedure. The patient then placed in dorsal lithotomy position, prepped and draped in normal sterile surgical fashion. A rigid cystoscope was then carefully passed into the bladder per urethra without any difficulty. A carrillo cystoscopy was done. Near the right ureteral orifice there were multiple small lesions that looked likely from a cystitis but they were definitely abnormal. A flexible grasping forceps was used to biopsy one of these lesions. Bovie electrocautery was then used to fulgurate this area. We then turned our attention to the stones. A 5-[place] open-ended ureteral catheter was then inserted right inside the right ureteral orifice. A right retrograde pyelogram was performed which showed moderate hydronephrosis and filling defects in both the distal ureter and UPJ consistent with the CT findings. A wire was then passed through the indwelling ureteral catheter, up into the right kidney under the guidance of fluoroscopy. The ureteral catheter was removed leaving the wire in place. Using a semi-rigid ureteroscope alongside the wire, inside her ureter and up to the distal stones, at 365-micron laser fiber was then used to break these stones up into smaller pieces. A 0-tip basket was then used to removed these pieces. Several of them were sent for analysis. I then carefully passed the rigid ureteroscope alongside the wire, up into her right ureter again and was able to get all the way up to her UPJ where the large 1-cm stone was visualized. Using a 365-micron laser fiber, I was able to break the stone up into tiny smaller fragments. Several of the fragments did go north, up into the kidney At this time I examined the entire length of the ureter. There was no evidence of the fragments left in her ureter itself. However, the ureter was significantly inflamed and edematous likely from the stones and mildly traumatic from the procedure. Therefore I left a 6 x 24 double-J stent in her right kidney. Fluoroscopy confirmed a good proximal curl her upper pole right kidney and under direct visualization I did see a good curl in her bladder. The bladder was then drained. This concluded the procedure. The patient was extubated and sent to Recovery in stable condition to be transferred back to the floor for her routine postoperative care. MD RASHAWN Burdick/CARLITO /12:36 PM /5:55 AM
[2016-10-18] MEDS: ACETAMIN 325 MG/BUTALBITAL 50 MG/CAFFEINE 40 MG TAB PO PRN (06:38)
[2016-10-18] MEDS ORDERED: KETOROLAC TROMETHAMINE 30 MG/ML (IVP) VIAL IV PUSH ONE (06:45)
[2016-10-18] MEDS ORDERED: CEFEPIME INJ 2,000 MG in SODIUM CHLORIDE 0.9% INJ 100 ML IV SCH (08:00)
[2016-10-18] MEDS: ACETAMINOPHEN/HYDROcodone 325 MG/7.5 MG TAB PO PRN ×2 (10:19→18:59)
--- NOTE | 2016-10-18 12:37 | HHI.PR ---
Subjective Remarks Follow up for sepsis with UTI and obstructive nephrolithiasis s/p stent, lithotripsy, stone retraction. The patient reports continued fevers overnight, Tmax 103.2 this morning. She reports her right flank pain is slowly improving. She has some mild dysuria. She complains of a headache today consistent with her migraines. Denies any nausea/vomiting. She has not had a bowel movement since prior to her arrival to the hospital. She has no other medical complaints at this time. Objective Vitals Vital Signs Date Time Temp Pulse Resp B/P Pulse Ox O2 Delivery O2 Flow Rate FiO2 10/18/16 11:09 101.7 111 20 137/84 97 10/18/16 07:38 20 10/18/16 07:16 103.2 125 20 134/74 95 10/18/16 06:26 101.4 127 18 157/91 98 10/18/16 02:38 101.7 10/18/16 01:19 102.9 115 20 143/78 97 10/17/16 20:47 98.8 101 19 130/78 96 10/17/16 18:47 20 10/17/16 17:36 101.5 115 18 140/81 92 10/17/16 16:56 20 10/17/16 15:30 103.0 10/17/16 13:04 20 10/17/16 11:52 98.5 116 20 140/83 100 Result Diagram: 10/17/16 1046 10/17/16 1046 Imaging Last Impressions Chest X-Ray 10/17/16 0000 Signed Impressions: Service Date/Time: Monday, October 17, 2016 06:48 - CONCLUSION: Minimal consolidation in the left retrocardiac region atelectasis versus pneumonia. Nilo Prince MD Abdomen/Pelvis CT 10/16/16 0000 Signed Impressions: Service Date/Time: Sunday, October 16, 2016 06:43 - CONCLUSION: Abnormal renal colic scan demonstrating severe right-sided hydronephrosis and induration of the perinephric fat with 3 obstructing stones,, one located at the ureteropelvic junction and 2 in the distal right ureter. Bigg Marcano MD Objective Remarks GENERAL: Well-nourished, well-developed female patient in [facility]. SKIN: Warm and dry. No rash. CARDIOVASCULAR: Regular rate and rhythm. S1, S2 noted. No murmur appreciated. RESPIRATORY: No accessory muscle use. Clear to auscultation. Breath sounds equal bilaterally. GASTROINTESTINAL: Abdomen soft, non-tender, nondistended. Normoactive bowel sounds x4. +R CVA tenderness. MUSCULOSKELETAL: No obvious deformities. Extremities without clubbing, cyanosis , or edema. NEUROLOGICAL: Awake and alert. No obvious cranial nerve deficits. Motor grossly within normal limits. Normal speech. PSYCHIATRIC: Appropriate mood and affect; insight and judgment normal. Procedures 10/16/16 - Dr. Ramirez: cystoscopy, right ureteroscopy, laser lithotripsy, stone removal stent insertion; bladder biopsy with fulguration Medications and IVs Current Medications Medications (Trade) Dose Ordered Sig/Callie Route Start Time Stop Time Status Last Admin Sodium Chloride 2 ml 2 ml UNSCH PRN IV FLUSH 10/16/16 06:30 10/16/16 21:23 (NS 1000 ml Inj) 1,000 ml @ 100 mls/hr Q10H IV 10/16/16 08:00 10/18/16 10:17 (Zofran Inj) 4 mg Q8HR PRN IV PUSH 10/16/16 08:00 10/16/16 21:23 (Dilaudid Pf Inj) 1 mg Q4H PRN IV PUSH 10/16/16 09:15 10/16/16 11:01 (B & O Supp) 60 mg Q6HR PRN RECTAL 10/16/16 18:00 (Tylenol) 650 mg Q4H PRN PO 10/17/16 06:45 10/18/16 01:30 ([place] 5-325 Mg) 1 tab Q4H PRN PO 10/17/16 12:00 ([place] 7.5-325 Mg) 1 tab Q4H PRN PO 10/17/16 12:00 10/18/16 10:19 Acetaminophen/ Butalbital/ Caffeine 1 tab 1 tab Q6HR PRN PO 10/17/16 18:00 10/18/16 06:38 (Maxipime Inj/NS Inj) 100 ml @ 100 mls/hr Q12H IV 10/18/16 08:00 10/18/16 10:18 A/P Problem List: (1) Ureteral calculi ICD Code: N20.1 Status: Acute (2) Hydronephrosis ICD Code: N13.30 Status: Acute Assessment and Plan 30-year-old female with history of recurrent nephrolithiasis s/p lithotripsy in June, presents to the ER with right flank pain. Obstructive Nephrolithiasis with Severe Right Hydronephrosis: CT abd/pelvis images reviewed, shows abnormal renal colic scan demonstrating severe right- sided hydronephrosis and induration of the perinephric fat with 3 obstructing stones; 1 located at the ureteropelvic junction and 2 in the distal right ureter. -Urology consulted, seen by Dr. Ramirez -10/16 S/p cystoscopy, right ureteroscopy, laser lithotripsy, stone removal, stent insertion; bladder biopsy with fulguration -Started on antibiotics for UTI -Checked PTH, uric acid to eval for recurrent stones, both wnl -[place]/IV Dilaudid prn pain -outpatient f/up with urology for stent removal Sepsis with UTI: meets sepsis criteria with +leukocytosis WBC 14.1K, tachycardia HR 116, febrile, Tmax 103, source-UTI -blood cultures ordered and pending -patient with recurrent fevers on IV Cipro, change abx to IV Cefepime today -supportive treatment with IVF -monitor urine culture -Addendum 1800hrs: patient still with high grade fevers today, discussed extensively with Dr. Rosenthal, recommended ID consult, change abx to Meropenem. Discussed with pharmacy. Also check repeat CXR, CBC, Lactic acid. Leukocytosis: suspect secondary to UTI -continue antibiotics as above -repeat CBC with improvement, WBC 10K -monitor Psoriasis: chronic, outpatient follow up Headache: acute. Give Fioricet prn. IV dilaudid prn breakthrough pain. DVT Prophylaxis: teds/SCDs Discharge Planning Possible discharge in 1-2 days if stable and afebrile. Mandatory outpatient referral with urology. Admit to inpatient with ongoing sepsis, UTI. Problem Qualifiers (1) Hydronephrosis: Qualified Code: Q62.0 - Hydronephrosis with ureteropelvic junction (UPJ) obstruction Shala Camacho PA-C Oct 18, 2016 12:37 pm
[2016-10-18] MEDS: KETOROLAC TROMETHAMINE 30 MG/ML (IVP) VIAL IV PUSH SCH ×2 (14:20→22:15)
[2016-10-18] MEDS ORDERED: MISCELLANEOUS PHARMACY INFORMATION XX PRN (17:30)
[2016-10-18] MEDS ORDERED: ASP: ID consult, note reason in consult order PRN (17:30)
--- NOTE | 2016-10-18 18:08 | RADRPT ---
EXAM DATE/TIME: 10/18/2016 17:50 [facility] COMPARISON: CHEST SINGLE AP, October 17, 2016, 6:48. INDICATIONS : Cough for 3 days. MEDICAL HISTORY : Renal calculi. SURGICAL HISTORY : None. ENCOUNTER: Initial ACUITY: 3 days PAIN SCORE: 5/10 LOCATION: Bilateral chest FINDINGS: A single AP portable view of the chest was obtained. The study is Midinspiratory. Is going atelectasi s is now noted in the right hilar regions and both lung bases with no focal consolidation or effusion . The heart size is within normal limits. The bony thorax is intact. CONCLUSION: Discoid atelectasis. No definite consolidation. Jeferson Junior MD on October 18, 2016 at 18:05 Board Certified Radiologist. This report was verified electronically.
[2016-10-18] MEDS: MEROPENEM INJ 1,000 MG in SODIUM CHLORIDE 0.9% INJ 100 ML IV SCH (20:00)
[2016-10-18 20:11] LABS: AUTOMATED NEUTROPHIL # 6.9 TH/MM3 (1.8-7.7); BASOPHIL % 0.2 % (0.0-2.0); EOSINOPHIL # 0.1 TH/MM3 (0-0.4); EOSINOPHIL % 1.3 % (0.0-4.0); HEMATOCRIT 36.3 % (35.0-46.0); HEMO FLAGS DIFF FINAL; LYMPH % 17.6 % (9.0-44.0); LYMPHOCYTE # 1.7 TH/MM3 (1.0-4.8); MEAN CELL VOLUME 86.4 FL (80.0-100.0); MEAN CORPUSCULAR HEMOGLOBIN 28.1 PG (27.0-34.0); MEAN CORPUSCULAR HGB CONC 32.6 % (32.0-36.0); MONO % 10.2 % (0.0-8.0); NEUT % 70.7 % (16.0-70.0); PLATELET COUNT 148 TH/MM3 (150-450); RED CELL DISTRIBUTION WIDTH 14.1 % (11.6-17.2); WHITE BLOOD COUNT 9.8 TH/MM3 (4.0-11.0)
[2016-10-19 00:54] VITALS: BP 144/89; PULSE 105; RESP 17; TEMP 99.6; O2SAT 98
[2016-10-19] MEDS: KETOROLAC TROMETHAMINE 30 MG/ML (IVP) VIAL IV PUSH SCH ×4 (01:34→19:51)
[2016-10-19 04:00] VITALS: BP 141/89; PULSE 94; RESP 18; TEMP 99.9; O2SAT 95
[2016-10-19] MEDS: MEROPENEM INJ 1,000 MG in SODIUM CHLORIDE 0.9% INJ 100 ML IV SCH ×2 (05:58→12:30)
[2016-10-19] MEDS: SODIUM CHLOR 0.9% 1000 ML INJ 1,000 ML IV SCH ×3 (05:59→19:51)
[2016-10-19 08:00] VITALS: BP 156/94; PULSE 106; RESP 20; TEMP 101.1; O2SAT 98
[2016-10-19] MEDS: ACETAMINOPHEN/HYDROcodone 325 MG/7.5 MG TAB PO PRN ×3 (08:00→21:24)
[2016-10-19 08:05] LABS: BICARBONATE 23.8 MEQ/L (21.0-32.0); POTASSIUM 3.3 MEQ/L (3.5-5.1)
[2016-10-19 08:09] LABS: AUTOMATED NEUTROPHIL # 6.2 TH/MM3 (1.8-7.7); BASOPHIL % 0.3 % (0.0-2.0); EOSINOPHIL # 0.2 TH/MM3 (0-0.4); EOSINOPHIL % 2.3 % (0.0-4.0); HEMATOCRIT 39.3 % (35.0-46.0); HEMO FLAGS DIFF FINAL; LYMPH % 17.9 % (9.0-44.0); LYMPHOCYTE # 1.6 TH/MM3 (1.0-4.8); MEAN CELL VOLUME 87.2 FL (80.0-100.0); MEAN CORPUSCULAR HGB CONC 33.2 % (32.0-36.0); MONO % 8.6 % (0.0-8.0); NEUT % 70.9 % (16.0-70.0); PLATELET COUNT 138 TH/MM3 (150-450); RED BLOOD COUNT 4.51 MIL/MM3 (4.00-5.30); RED CELL DISTRIBUTION WIDTH 14.1 % (11.6-17.2); WHITE BLOOD COUNT 8.8 TH/MM3 (4.0-11.0)
[2016-10-19] MEDS: valACYclovir HCL 500 MG TAB PO SCH ×2 (08:51→19:51)
[2016-10-19 12:00] VITALS: BP 131/84; PULSE 91; RESP 20; TEMP 97.7; O2SAT 96
--- NOTE | 2016-10-19 14:09 | HHI.PR ---
Subjective Remarks Follow up for sepsis with UTI and obstructive nephrolithiasis s/p stent, lithotripsy, stone retraction. Patient is currently doing well. However she reports a course of developing on her lower lip. She had a fever of around 101.0 Fahrenheit. No chest pain, shortness of breath. Objective Vitals Vital Signs Date Time Temp Pulse Resp B/P Pulse Ox O2 Delivery O2 Flow Rate FiO2 10/19/16 13:39 16 10/19/16 12:00 97.7 91 20 131/84 96 10/19/16 09:10 16 10/19/16 08:00 101.1 106 20 156/94 98 10/19/16 04:00 99.9 94 18 141/89 95 10/19/16 00:54 99.6 105 17 144/89 98 10/18/16 19:19 100.9 115 18 152/93 94 10/18/16 15:35 103.0 116 20 132/82 97 I/O 10/18/16 10/18/16 10/18/16 10/19/16 10/19/16 10/19/16 07:00 15:00 23:00 07:00 15:00 23:00 Intake Total 120 ml Balance 120 ml Intake Oral 120 ml # Voids 2 # Bowel Movements 0 Result Diagram: 10/19/1672110/19/16721 Imaging Last Impressions Chest X-Ray 10/18/16 0000 Signed Impressions: Service Date/Time: October 17:50 - CONCLUSION: Discoid atelectasis. No definite consolidation. Jeferson Junior MD Abdomen/Pelvis CT 10/16/16 0000 Signed Impressions: Service Date/Time: Sunday, October 16, 2016 06:43 - CONCLUSION: Abnormal renal colic scan demonstrating severe right-sided hydronephrosis and induration of the perinephric fat with 3 obstructing stones,, one located at the ureteropelvic junction and 2 in the distal right ureter. Bigg Marcano MD Objective Remarks GENERAL: Alert, oriented 3, NAD. SKIN: Warm and dry. HEAD: Normocephalic. EYES: No scleral icterus. No injection or drainage. NECK: Supple, trachea midline. No JVD or lymphadenopathy. CARDIOVASCULAR: Regular rate and rhythm without murmurs, gallops, or rubs. RESPIRATORY: Breath sounds equal bilaterally. No accessory muscle use. GASTROINTESTINAL: Abdomen soft, non-tender, nondistended. MUSCULOSKELETAL: No cyanosis, or edema. BACK: Nontender without obvious deformity. No CVA tenderness. Procedures 10/16/16 - Dr. Ramirez: cystoscopy, right ureteroscopy, laser lithotripsy, stone removal stent insertion; bladder biopsy with fulguration A/P Problem List: (1) Ureteral calculi ICD Code: N20.1 Status: Acute (2) Hydronephrosis ICD Code: N13.30 Status: Acute Assessment and Plan 30-year-old female with history of recurrent nephrolithiasis s/p lithotripsy in June, presents to the ER with right flank pain. Obstructive Nephrolithiasis with Severe Right Hydronephrosis: CT abd/pelvis images reviewed, shows abnormal renal colic scan demonstrating severe right- sided hydronephrosis and induration of the perinephric fat with 3 obstructing stones; 1 located at the ureteropelvic junction and 2 in the distal right ureter. -Urology consulted, seen by Dr. Ramirez -10/16 S/p cystoscopy, right ureteroscopy, laser lithotripsy, stone removal, stent insertion; bladder biopsy with fulguration -Started on antibiotics for UTI -Checked PTH, uric acid to eval for recurrent stones, both within normal range. -[place]/IV Dilaudid prn pain -outpatient f/up with urology for stent removal - Atelectasis - could be reason for fever. We'll start incentive spirometry. - Sepsis with UTI: meets sepsis criteria with +leukocytosis WBC 14.1K, tachycardia HR 116, febrile, Tmax 103, source-UTI -blood cultures ordered and pending -patient with recurrent fevers on IV Cipro, changed to meropenem due to persistent high-grade fever. -supportive treatment with IVF -monitor urine culture -Infectious disease consult pending. - Urine cx shows Group D enterococcus but 10-75K CFU. May consider discontinuing Meropenem. 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 We will start Valtrex. Leukocytosis: suspect secondary to UTI -continue antibiotics as above -repeat CBC with improvement, WBC 10K Psoriasis: chronic, outpatient follow up Headache: acute. Give Fioricet prn. IV Dilaudid prn breakthrough pain. DVT Prophylaxis: teds/SCDs Problem Qualifiers (1) Hydronephrosis: Qualified Code: Q62.0 - Hydronephrosis with ureteropelvic junction (UPJ) obstruction Dolly Mora DO Oct 19, 2016 14:09
[2016-10-19 16:41] VITALS: BP 139/81; PULSE 96; RESP 20; TEMP 98.9; O2SAT 100
--- NOTE | 2016-10-19 17:35 | HHI.PR ---
Subjective Patient symptoms today feels better. denies pain. tolerating stent well. last fever 8am this morning. Objective Vital Signs Vital Signs Date Time Temp Pulse Resp B/P Pulse Ox O2 Delivery O2 Flow Rate FiO2 10/19/16 16:41 98.9 96 20 139/81 100 10/19/16 13:39 16 10/19/16 12:00 97.7 91 20 131/84 96 10/19/16 09:10 16 10/19/16 08:00 101.1 106 20 156/94 98 10/19/16 04:00 99.9 94 18 141/89 95 10/19/16 00:54 99.6 105 17 144/89 98 10/18/16 19:19 100.9 115 18 152/93 94 Intake & Output 10/19/16 10/19/16 07:00 19:00 Intake Total 120 ml 480 ml Balance 120 ml 480 ml Intake Oral 120 ml 480 ml # Voids 2 4 # Bowel Movements 0 0 Result Diagram: 10/19/1672110/19/16721 Objective Remarks NAD. A/O x 3 abd soft Medications and IVs Current Medications Medications (Trade) Dose Ordered Sig/Callie Route Start Time Stop Time Status Last Admin Sodium Chloride 2 ml 2 ml UNSCH PRN IV FLUSH 10/16/16 06:30 10/16/16 21:23 (NS 1000 ml Inj) 1,000 ml @ 100 mls/hr Q10H IV 10/16/16 08:00 10/19/16 17:30 (Zofran Inj) 4 mg Q8HR PRN IV PUSH 10/16/16 08:00 10/16/16 21:23 (Dilaudid Pf Inj) 1 mg Q4H PRN IV PUSH 10/16/16 09:15 10/16/16 11:01 (B & O Supp) 60 mg Q6HR PRN RECTAL 10/16/16 18:00 (Tylenol) 650 mg Q4H PRN PO 10/17/16 06:45 10/18/16 01:30 (Satin 5-325 Mg) 1 tab Q4H PRN PO 10/17/16 12:00 10/19/16 02:33 (Satin 7.5-325 Mg) 1 tab Q4H PRN PO 10/17/16 12:00 10/19/16 17:29 (Fioricet 325-50-40) 1 tab Q6HR PRN PO 10/17/16 18:00 10/18/16 06:38 (Toradol Inj) 15 mg Q6H IV PUSH 10/18/16 14:00 10/21/16 13:59 10/19/16 12:29 Valacyclovir HCl 1000 mg 1,000 mg Q12HR PO 10/19/16 09:00 10/19/16 08:51 (Ampicillin Inj/ NS Inj) 100 ml @ 400 mls/hr Q4H IV 10/19/16 18:00 Assessment and Plan Assessment and Plan POD#3 cystoscopy, right ureteroscopy, laser lithotripsy, stone removal stent insertion; bladder biopsy with fulguration -Continue antibiotics. Cultures pending -PTH, Uric Acid normal -Check KUB -If she does well, stent could be removed on Saturday or Saturday as outpatient. Brian Ramirez MD Oct 19, 2016 17:35
[2016-10-19] MEDS: AMPICILLIN INJ 2,000 MG in SODIUM CHLORIDE 0.9% INJ 100 ML IV SCH ×2 (18:40→21:18)
[2016-10-19 19:00] VITALS: BP 134/78; PULSE 109; RESP 19; TEMP 98; O2SAT 98
[2016-10-20] VITALS: BP 158/69; PULSE 103; RESP 16; TEMP 98.9; O2SAT 99
[2016-10-20] MEDS: KETOROLAC TROMETHAMINE 30 MG/ML (IVP) VIAL IV PUSH SCH ×3 (01:58→14:30)
[2016-10-20] MEDS: AMPICILLIN INJ 2,000 MG in SODIUM CHLORIDE 0.9% INJ 100 ML IV SCH ×4 (01:58→14:29)
[2016-10-20 04:00] VITALS: BP 132/81; PULSE 67; RESP 15; TEMP 97.6; O2SAT 96
--- NOTE | 2016-10-20 05:37 | RADRPT ---
EXAM DATE/TIME: 10/20/2016 04:33 [place] COMPARISON: CT ABDOMEN & PELVIS W/O CONTRAST, October 16, 2016, 6:43. INDICATIONS : Calculi MEDICAL HISTORY : Renal calculi SURGICAL HISTORY : None. ENCOUNTER: Subsequent ACUITY: 4 - 6 days PAIN SCORE: 0/10 LOCATION: abdomen FINDINGS: Right-sided ureteral stent present looped proximally over the right kidney and distally overlying the bladder. Calculus noted in right kidney midpole. Bowel gas pattern unremarkable. CONCLUSION: 1. Right ureteral stent in place. Calculus midpole right kidney measuring about 8 mm in diameter. No definite calculi seen along the course of the stent. Miguel Patel MD on October 20, 2016 at 5:32 Board Certified Radiologist. This report was verified electronically.
[2016-10-20 08:00] VITALS: BP 135/89; PULSE 95; RESP 18; TEMP 96.9; O2SAT 98
[2016-10-20] MEDS: valACYclovir HCL 500 MG TAB PO SCH (08:14)
[2016-10-20] MEDS ORDERED: AMOX875T PO (09:57)
[2016-10-20] MEDS ORDERED: BUTATAB6 PO (09:58)
[2016-10-20] MEDS ORDERED: VALT500T PO (09:58)
[2016-10-20] MEDS ORDERED: TRAM50TA PO (09:58)
[2016-10-20] MEDS: SODIUM CHLOR 0.9% 1000 ML INJ 1,000 ML IV SCH (09:59)
--- NOTE | 2016-10-20 10:00 | HHI.DS ---
Discharge Summary Admission Date Oct 17, 2016 at 7:32 pm Discharge Date: Oct 20, 2016 Admitting Diagnosis ureteral Calculi, renal colic, intractable pain (1) Ureteral calculi ICD Code: N20.1 - Calculus of ureter Diagnosis: Principal (2) Hydronephrosis ICD Code: N13.30 - Unspecified hydronephrosis Diagnosis: Principal Procedures 10/16/16 - Dr. Ramirez: cystoscopy, right ureteroscopy, laser lithotripsy, stone removal stent insertion; bladder biopsy with fulguration Brief History - From Admission patient is a 30 y/o female with history of nephrolithiasis- s/p lithotripsy in June, presented to ER with right flank pain. she says that the pain started at 10 last night and gradually got worse over night to the extent that she decided to come to ER. she had some nausea and had an episode of emesis earlier today. she had some chills but no fever. she denies any dysuria. CBC/BMP: 10/19/16 0722 10/19/16 0722 Significant Findings Laboratory Tests Test 10/17/16 10/17/16 10/18/16 10/19/16 10:46 22:30 19:38 07:22 Neutrophils (%) (Auto) 84.3 % 70.7 % 70.9 % (16.0-70.0) (16.0-70.0) (16.0-70.0) Neutrophils # (Auto) 8.5 TH/MM3 (1.8-7.7) Potassium Level 3.4 MEQ/L 3.3 MEQ/L (3.5-5.1) (3.5-5.1) Creatinine 1.02 MG/DL (0.50-1.00) Estimat Glomerular Filtration 63 ML/MIN (>89) Rate Urine Protein 30 mg/dL (NEG-TRACE) Urine Ketones TRACE mg/dL (NEG) Urine Occult Blood MOD (NEG) Urine Leukocyte Esterase LARGE (NEG) Urine WBC 39 /hpf (0-5) Urine Calcium Oxalate Crystals RARE /hpf (NONE) Urine Mucus FEW /lpf (OCC) Platelet Count 148 TH/MM3 138 TH/MM3 (150-450) (150-450) Monocytes (%) (Auto) 10.2 % 8.6 % (0.0-8.0) (0.0-8.0) Monocytes # (Auto) 1.0 TH/MM3 (0-0.9) Blood Urea Nitrogen 6 MG/DL (7-18) Imaging Last Impressions Abdomen X-Ray 10/20/16 0600 Signed Impressions: Service Date/Time: Thursday, October 20, 2016 04:33 - CONCLUSION: 1. Right ureteral stent in place. Calculus midpole right kidney measuring about 8 mm in diameter. No definite calculi seen along the course of the stent. Miguel Patel MD Chest X-Ray 10/18/16 0000 Signed Impressions: Service Date/Time: October 17:50 - CONCLUSION: Discoid atelectasis. No definite consolidation. Jeferson Junior MD Abdomen/Pelvis CT 10/16/16 0000 Signed Impressions: Service Date/Time: Sunday, October 16, 2016 06:43 - CONCLUSION: Abnormal renal colic scan demonstrating severe right-sided hydronephrosis and induration of the perinephric fat with 3 obstructing stones,, one located at the ureteropelvic junction and 2 in the distal right ureter. Bigg Marcano MD PE at Discharge GENERAL: Alert, oriented 3, NAD. SKIN: Warm and dry. HEAD: Normocephalic. EYES: No scleral icterus. No injection or drainage. NECK: Supple, trachea midline. No JVD or lymphadenopathy. CARDIOVASCULAR: Regular rate and rhythm without murmurs, gallops, or rubs. RESPIRATORY: Breath sounds equal bilaterally. No accessory muscle use. GASTROINTESTINAL: Abdomen soft, non-tender, nondistended. MUSCULOSKELETAL: No cyanosis, or edema. BACK: Nontender without obvious deformity. No CVA tenderness. Pt update on day of discharge Ms. Tapia is doing well. No acute concerns. No fever, chills. Hospital Course 30-year-old female with history of recurrent nephrolithiasis s/p lithotripsy in June, presents to the ER with right flank pain. Obstructive Nephrolithiasis with Severe Right Hydronephrosis: CT abd/pelvis images reviewed, shows abnormal renal colic scan demonstrating severe right- sided hydronephrosis and induration of the perinephric fat with 3 obstructing stones; 1 located at the ureteropelvic junction and 2 in the distal right ureter. -Urology consulted, seen by Dr. Ramirez -10/16 S/p cystoscopy, right ureteroscopy, laser lithotripsy, stone removal, stent insertion; bladder biopsy with fulguration -Started on antibiotics for UTI -Checked PTH, uric acid to eval for recurrent stones, both within normal range. -[place]/IV Dilaudid prn pain -outpatient f/up with urology for stent removal - Atelectasis - could be reason for fever. Started incentive spirometry. - Sepsis with UTI: meets sepsis criteria with +leukocytosis WBC 14.1K, tachycardia HR 116, febrile, Tmax 103, source-UTI -blood cultures ordered and pending -patient with recurrent fevers on IV Cipro, changed to meropenem due to persistent high-grade fever. -supportive treatment with IVF -monitor urine culture -Infectious disease consult pending. - Urine cx shows Group D enterococcus but 10-75K CFU. May consider discontinuing Meropenem. 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 We will start Valtrex. Leukocytosis: suspect secondary to UTI -continue antibiotics as above -repeat CBC with improvement, WBC 10K Psoriasis: chronic, outpatient follow up Headache: acute. Give Fioricet prn. IV Dilaudid prn breakthrough pain. DVT Prophylaxis: teds/SCDs Pt Condition on Discharge: Good Discharge Disposition: Discharge Home Discharge Time: > 30 minutes Discharge Instructions DIET: Follow Instructions for: As Tolerated, No Restrictions Activities you can perform: Regular-No Restrictions Follow up Referrals: PCP Follow-up - 2 Weeks Urology - 2-3 Days with Brian Ramirez MD New Medications: Amoxicillin (Amoxicillin) 875 Mg Tab 875 MG PO BID for Infection, #14 TAB 0 Refills Tramadol (Tramadol) 50 Mg Tab 50 MG PO Q8H PRN for PAIN, #15 TAB 0 Refills Wfgswopoye-Fvgkvoldstnmc-Npclnaek (Ladpnzrpsh-Ujukqjwnotahl-Nnbdwjrn) 50-325-40 Mg Tab 1 TAB PO Q6HR PRN for headache/migraine, #15 TAB Valacyclovir (Valtrex) 500 Mg Tab 1000 MG PO Q12HR for Infection, #14 TAB Dolly Mora DO Oct 20, 2016 10:00
[2016-10-20 12:00] VITALS: BP 119/76; PULSE 94; RESP 18; TEMP 98.9; O2SAT 99
[2016-10-20 16:00] VITALS: BP 127/91; PULSE 83; RESP 18; TEMP 97; O2SAT 98
--- NOTE | 2016-10-22 08:34 | MB ---
cc: MARTHA SMALL M.D. DATE OF CONSULTATION 10/19/[address] Mora. REASON FOR CONSULTATION Urinary tract infection, sepsis, status post right ureteral stent and stone extraction. HISTORY OF PRESENT ILLNESS This is a 31 year old white female who presented to the emergency department with right flank pain. The patient has a history of kidney stones. She also developed mild nausea as well. The patient was found to have significant kidney stone, severe right-sided hydronephrosis and induration of the perinephric fat. There were three obstructing stones with one at the ureteropelvic junction and two at the distal right ureter. The patient underwent lithotripsy and right ureteroscopy and right retrograde pyelogram and removal of the stone and also insertion of right ureteral stent and also bladder biopsy. She continues to have some degree of chills. Culture of the urine on 10/17 came back with group D enterococcus. Blood cultures have no growth. White blood cell count was 14.1 on 10/16 and has come down to normal. The patient had mild cough for 1-2 days. She has had no significant sputum production. A chest x-ray showed minimal consolidation in the left retrocardiac region suggesting atelectasis versus pneumonia. Last maximum temperature was 101 degrees early today. Prior to that, she had temperature of 103 degrees yesterday afternoon. PAST MEDICAL HISTORY 1. Nephrolithiasis 2. Psoriasis 3. History of lithotripsy 4. History of ureteral stent. ALLERGIES None. MEDICATIONS 1. Meropenem 2. Valtrex 3. Toradol 4. Fioricet 5. [place] 7.5 6. Tylenol 7. Dilaudid as needed SOCIAL HISTORY No tobacco. Occasional marijuana. No alcohol. FAMILY HISTORY Noncontributory REVIEW OF SYSTEMS Negative for 10 point review except for chills and pain in the right flank and fever. PHYSICAL EXAMINATION GENERAL: This is a moderately obese female who is in no acute distress. She is awake, alert and oriented. VITAL SIGNS: Temperature 98.9, blood pressure 139/81, respirations 20, heart rate 96. HEENT: Extraocular movements grossly intact. Pupils reactive to light. No icterus. Oropharynx - no visible lesions. NECK: Supple without adenopathy. LUNGS: Clear breath sounds bilaterally. HEART: Regular rate and rhythm. ABDOMEN: Soft, diminished bowel sounds. Nontender. Mild right flank tenderness. RECTAL: Not performed. EXTREMITIES: No cyanosis, clubbing or edema. SKIN: No rash. NEUROLOGIC: Nonfocal. PSYCHIATRIC: The patient is calm and cooperative. LABORATORY DATA WBC 8.8, platelets 138, sodium 138, creatinine 0.74, estimated GFR 90. IMPRESSION 1. Pyelonephritis in patient who has history of kidney stones including current kidney stone which was extracted. 2. Positive urine culture with enterococcus. RECOMMENDATIONS 1. Discontinue Meropenem. 2. Begin ampicillin intravenous. 3. Follow the urine culture until final identity and sensitivity of the enterococcus. 4. Monitor blood cultures. 5. Monitor clinical status. Please call Infectious Disease on the weekend if any change in the cultures so that antibiotics can be further adjusted if necessary. Thank you for this consultation. Dallin Khalil MD FD/ /5:06 PM /8:32 AM RYAN
== END 2016-10-20 18:17 | disposition home or self-care (01) | DRG 668 ==
LOC: NEPE 05:55 → NEDA 07:54 → NEPGCP 09:55 → OBSVTOIN 10-17 19:32 → N06B 10-19 02:04
PROVIDERS: ADMIT Hospitalist; ATTEND Hospitalist
PROC: BT1D1ZZ Fluoroscopy of Right Kidney, Ureter and Bladder using Low Osmolar Contrast (ICD-10-PCS; principal; 2016-10-17)
PROC: 0TC68ZZ Extirpation of Matter from Right Ureter, Via Natural or Artificial Opening Endoscopic (ICD-10-PCS; 2016-10-17)
PROC: 0TBB8ZX Excision of Bladder, Via Natural or Artificial Opening Endoscopic, Diagnostic (ICD-10-PCS; 2016-10-17)
PROC: 0T768DZ Dilation of Right Ureter with Intraluminal Device, Via Natural or Artificial Opening Endoscopic (ICD-10-PCS; 2016-10-17)
DX: N13.2 Hydronephrosis with renal and ureteral calculous obstruction (principal); A41.9 Sepsis, unspecified organism; J98.11 Atelectasis; N10 Acute pyelonephritis; B95.2 Enterococcus as the cause of diseases classified elsewhere; E66.9 Obesity, unspecified; Z68.33 Body mass index [BMI] 33.0-33.9, adult; F12.90 Cannabis use, unspecified, uncomplicated; B00.1 Herpesviral vesicular dermatitis; L40.9 Psoriasis, unspecified; R51 Headache
CPT/HCPCS: 71010; 74000; 74176; 74420; 80048; 80053; 81001; 82365; 82370; 83605; 83970; 84145; 84550; 84703; 85025; 87040; 87077; 87086; 87186; 88300; 88305; 94150; 96374; 96375; C1769; C2617; J0131; J0290; J0690; J0692; J0744; J1100; J1170; J1885; J2185; J2250; J2270; J2370; J2405; J3010; J7030; Q9967

== ENCOUNTER 2017-10-07 14:34 | Inpatient (IN) ==
[2017-10-07] MEDS ORDERED: Acetaminophen 325 MG Tablet PO ONE (18:35)
[2017-10-07] MEDS ORDERED: Sod Chloride 0.9% Inj 2,000 ML IV.SIG ONE (18:35)
--- NOTE | 2017-10-07 18:42 | ED ---
HPI General Chief complaint: Fever Stated complaint: possible kidney stone/fever Time Seen by Provider: 10/07/17 18:26 History of Present Illness HPI narrative: This is a 31-year-old female who presents for evaluation of bilateral flank pain, fevers and chills, lower abdominal pain, nausea and vomiting. Symptoms started yesterday. She reports burning/sharp pain when she urinates, constant, no aggravating or relieving factors. She has history of recently diagnosed bilateral ureteral stones. She follows with urologist Dr. Ramirez. She reports that she is scheduled for right-sided lithotripsy on October 24. She reports a slight sore throat. Denies cough, congestion, rash, open wounds. No other complaints. Related Data Home Medications Medication Instructions Recorded Confirmed kdrwrizwor-kxdfzcmjsuqum-mnem 1 cap PO Q4H PRN 09/05/17 10/07/17 [Fioricet] tamsulosin [Flomax] 0.4 mg PO HS 10/07/17 10/07/17 Previous Rx's Medication Instructions Recorded tramadol [Ultram] 50 mg PO Q6H PRN #10 tab 09/05/17 ibuprofen 800 mg PO Q8H PRN #30 tab 09/11/17 oxycodone-acetaminophen 1 tab PO Q6H PRN #12 tab 09/11/17 Allergies Allergy/AdvReac Type Severity Reaction Status Date / Time No Known Allergies Allergy Verified 10/07/17 18:41 Review of Systems Except as stated in HPI: all other systems reviewed are negative PMFSH Social History Social History Substance History: No History of Abuse Second Hand Smoke Exposure: No Smoking Status: Former smoker Tobacco Type: Cigarettes How Often Do You Have a Drink Containing Alcohol: 2 to 4 times a month Recent Travel in [facility] within the Last 8 Weeks: No Recent Out of Country Travel within the Last 8 Weeks: No Exam Narrative Exam Narrative: GENERAL: Well-developed well-nourished female no acute distress SKIN: Warm and dry. HEAD: Atraumatic. Normocephalic. EYES: Pupils equal and round. No scleral icterus. No injection or drainage. ENT: No nasal bleeding or discharge. Mucous membranes pink and moist. NECK: Trachea midline. No JVD. No lymphadenopathy. Neck supple full range of motion. CARDIOVASCULAR: Regular rate and rhythm. No murmur appreciated. RESPIRATORY: No accessory muscle use. Clear to auscultation. Breath sounds equal bilaterally. GASTROINTESTINAL: Abdomen soft, some tenderness to palpation of the suprapubic region without guarding. No reproducible CVA tenderness. MUSCULOSKELETAL: No obvious deformities. No clubbing. No cyanosis. No edema. NEUROLOGICAL: Awake and alert. No obvious cranial nerve deficits. Motor grossly within normal limits. Normal speech. Course Initial Documented Vital Signs Temperature 102.4 F H 10/07/17 14:43 Pulse Rate 66 10/07/17 14:43 Respiratory Rate 16 10/07/17 14:43 Blood Pressure 137/96 H 10/07/17 14:43 Pulse Oximetry 100 10/07/17 14:43 Last Documented Vital Signs Temperature 98.6 F 10/07/17 22:57 Pulse Rate 98 H 10/07/17 22:57 Respiratory Rate 16 10/07/17 22:57 Blood Pressure 123/72 10/07/17 22:57 Pulse Oximetry 99 10/07/17 22:57 Medical Decision Making KERRY Attestation KERRY supervised visit: Yes Attestation: I, Dr. Rojas, have reviewed the advance practice practitioner's documentation and am in agreement, met with the patient face to face, made the diagnosis, and the medical decision making was done by me. *My assessment and Findings: Patient will be admitted to the hospital for treatment of sepsis due to pyelonephritis. [facility] Narrative Medical decision making narrative: Patient was placed on ECG monitoring pulse oximetry. 2 L normal saline bolus administered. Tylenol administered. Lab work, CT abdomen and pelvis, urinalysis, blood cultures have been ordered. I reviewed her records. Last urine culture results grew out enterococcus only susceptible to linezolid, daptomycin and gentamicin. She was treated in early September with a 10 day course of oral linezolid which she completed with no difficulties. She was given 80 mg of IV gentamicin, discussed dosing with pharmacy. Urinalysis reveals multiple WBCs. CBC is unremarkable. Lactic acid within normal limits. Potassium is 3.2, she was given oral potassium chloride. Patient will be admitted for further treatment. Differential Diagnosis Differential Diagnosis: Pyelonephritis, sepsis, hydronephrosis, ureteral stone, cystitis, pelvic inflammatory disease, appendicitis Lab Data Result diagrams: 10/07/17 18:45 08/06/18 18:45 Lab Results 10/07/17 10/07/17 10/07/17 Range/Units 18:45 18:45 18:45 WBC 9.3 (4.0-11.0) th/mm3 RBC 4.82 (4.00-5.30) mil/mm3 Hgb 14.2 (11.6-15.3) gm/dL Hct 42.1 (35.0-46.0) % MCV 87.3 (80.0-100.0) fL MCH 29.5 (27.0-34.0) pg MCHC 33.7 (32.0-36.0) % RDW 13.9 (11.6-17.2) % Plt Count 164 D (150-450) th/mm3 MPV 10.1 (7.0-11.0) fL Neut % (Auto) 72.3 H (16.0-70.0) % Lymph % (Auto) 20.9 (9.0-44.0) % [place] % (Auto) 6.3 (0.0-8.0) % Eos % (Auto) 0.2 (0.0-4.0) % Baso % (Auto) 0.3 (0.0-2.0) % Neut # (Auto) 6.7 (1.8-7.7) th/mm3 Lymph # (Auto) 2.0 (1.0-4.8) th/mm3 [place] # (Auto) 0.6 (0.0-0.9) th/mm3 Eos # (Auto) 0.0 (0.0-0.4) th/mm3 Baso # (Auto) 0.0 (0.0-0.2) th/mm3 WBC Differential . Differential Comment Auto diff final Sodium 135 L (136-145) meq/L Potassium 3.2 L (3.5-5.1) meq/L Chloride 102 (98-107) meq/L Carbon Dioxide 22.4 (21.0-32.0) meq/L Anion Gap 11 (5-15) meq/L BUN 8 (7-18) mg/dL Creatinine 0.96 (0.50-1.00) mg/dL Estimated GFR 67 L (>89) mL/min Random Glucose 105 (74-106) mg/dL Lactic Acid 1.1 (0.4-2.0) mmol/L Calcium 9.8 (8.5-10.1) mg/dL Total Bilirubin 0.8 (0.2-1.0) mg/dL AST 14 L (15-37) U/L ALT 22 (10-53) U/L Alkaline Phosphatase 72 (45-117) U/L Total Protein 7.9 (6.4-8.2) g/dL Albumin 3.9 (3.4-5.0) g/dL Urine Color (Yellw/Straw) Urine Clarity (Clear) Urine pH (5.0-8.5) Ur Specific [place] (1.002-1.035) Urine Protein (Neg-Trace) mg/dL Urine Glucose (UA) (Negative) mg/dL Urine Ketones (Negative) mg/dL Urine Occult Blood (Negative) Urine Nitrate (Negative) Urine Bilirubin (Negative) Urine Urobilinogen (Less than 2) mg/dL Ur Leukocyte Esterase (Negative) Urine RBC (0-3) /hpf Urine WBC (0-5) /hpf Ur Squamous Epith Cells (0-5) /hpf Urine Bacteria (None) /hpf Urine Mucus (Occasional) /lpf Micro UA Comment Urine Culture Comments 10/07/17 Range/Units 18:45 WBC (4.0-11.0) th/mm3 RBC (4.00-5.30) mil/mm3 Hgb (11.6-15.3) gm/dL Hct (35.0-46.0) % MCV (80.0-100.0) fL MCH (27.0-34.0) pg MCHC (32.0-36.0) % RDW (11.6-17.2) % Plt Count (150-450) th/mm3 MPV (7.0-11.0) fL Neut % (Auto) (16.0-70.0) % Lymph % (Auto) (9.0-44.0) % [place] % (Auto) (0.0-8.0) % Eos % (Auto) (0.0-4.0) % Baso % (Auto) (0.0-2.0) % Neut # (Auto) (1.8-7.7) th/mm3 Lymph # (Auto) (1.0-4.8) th/mm3 [place] # (Auto) (0.0-0.9) th/mm3 Eos # (Auto) (0.0-0.4) th/mm3 Baso # (Auto) (0.0-0.2) th/mm3 WBC Differential Differential Comment Sodium (136-145) meq/L Potassium (3.5-5.1) meq/L Chloride (98-107) meq/L Carbon Dioxide (21.0-32.0) meq/L Anion Gap (5-15) meq/L BUN (7-18) mg/dL Creatinine (0.50-1.00) mg/dL Estimated GFR (>89) mL/min Random Glucose (74-106) mg/dL Lactic Acid (0.4-2.0) mmol/L Calcium (8.5-10.1) mg/dL Total Bilirubin (0.2-1.0) mg/dL AST (15-37) U/L ALT (10-53) U/L Alkaline Phosphatase (45-117) U/L Total Protein (6.4-8.2) g/dL Albumin (3.4-5.0) g/dL Urine Color Yellow (Yellw/Straw) Urine Clarity Hazy H (Clear) Urine pH 6.0 (5.0-8.5) Ur Specific [place] 1.013 (1.002-1.035) Urine Protein 100 H (Neg-Trace) mg/dL Urine Glucose (UA) Negative (Negative) mg/dL Urine Ketones 20 (Negative) mg/dL Urine Occult Blood Large H (Negative) Urine Nitrate Negative (Negative) Urine Bilirubin Negative (Negative) Urine Urobilinogen Less than 2 (Less than 2) mg/dL Ur Leukocyte Esterase Large H (Negative) Urine RBC (0-3) /hpf Urine WBC 149 H (0-5) /hpf Ur Squamous Epith Cells 2 (0-5) /hpf Urine Bacteria Moderate H (None) /hpf Urine Mucus Few H (Occasional) /lpf Micro UA Comment Culture indicated Urine Culture Comments Culture indicated Imaging Data Radiologist's impression: Abdomen/Pelvis CT 10/07/17 18:35 CONCLUSION: 1. Abnormal appearance to the right kidney with 2 calcified stones located in the midpole and extrarenal pelvis, inhomogeneous enhancement of the parenchyma, and induration of the perinephric fat. The induration of the fat is a new finding when compared to prior CT 09/11/2017 2. Mild amount of free fluid in the dependent pelvis is also a new finding.. Discharge Plan Discharge Disposition Patient Disposition: 30 Still Patient Discharge Condition Condition: Stable Discharge Details Diagnosis: Sepsis, Pyelonephritis, Renal calculus, bilateral Physicians Team ED Provider: Donna Rojas ED Midlevel Provider: Zachery Li Primary Care Provider: Brian Ramirez Attending Provider: Donna Sanz Status ED Status: Admitted Patient
[2017-10-07] MEDS ORDERED: Morphine Inj 4 MG/ML Vial IV.PUSH ONE (19:34)
[2017-10-07 20:04] LABS: Bacteria,Urine Moderate /hpf; Bilirubin,Urine Negative (Negative); Clarity,Urine Hazy (Clear); Color,Urine Yellow (Yellw/Straw); Glucose,Urine (UA) Negative (Negative); Leukocyte Esterase,Urine Large (Negative); Mucus,Urine Few /lpf (Occasional); Nitrite,Urine Negative (Negative); Specific Gravity,Urine 1.013 (1.002-1.035); Squamous Epithelial Cell,Urine 2 /hpf (0-5)
[2017-10-07 20:05] LABS: Baso % (Auto) 0.3 % (0.0-2.0); Eos % (Auto) 0.2 % (0.0-4.0); Hematocrit 42.1 % (35.0-46.0); Hemoglobin 14.2 gm/dL (11.6-15.3); Lymph % (Auto) 20.9 % (9.0-44.0); Mean Corpuscular HGB Conc 33.7 % (32.0-36.0); Mean Corpuscular Hemoglobin 29.5 pg (27.0-34.0); Mean Corpuscular Volume 87.3 fL (80.0-100.0); Mean Platelet Volume 10.1 fL (7.0-11.0); Mono # (Auto) 0.6 th/mm3 (0.0-0.9); Mono % (Auto) 6.3 % (0.0-8.0); Neut # (Auto) 6.7 th/mm3 (1.8-7.7); Neut % (Auto) 72.3 % (16.0-70.0); Platelet Count 164 th/mm3 (150-450); Red Blood Count 4.82 mil/mm3 (4.00-5.30); Red Cell Distribution Width 13.9 % (11.6-17.2); White Blood Count 9.3 th/mm3 (4.0-11.0)
[2017-10-07] MEDS ORDERED: Gentamicin/NS 80 mg Premix 100 ML IV.SIG ONE ×2 (20:13→23:45)
[2017-10-07 20:28] LABS: Albumin 3.9 g/dL (3.4-5.0); Anion Gap 11 meq/L (5-15); Aspartate Aminotransferase 14 U/L (15-37); Blood Urea Nitrogen 8 mg/dL (7-18); Calcium 9.8 mg/dL (8.5-10.1); Carbon Dioxide 22.4 meq/L (21.0-32.0); Chloride 102 meq/L (98-107); Glomerular Filtration Rate 67 mL/min (>89); Glucose,Random 105 mg/dL (74-106); Potassium 3.2 meq/L (3.5-5.1); Sodium 135 meq/L (136-145)
[2017-10-07 20:32] LABS: Alanine Aminotransferase 22 U/L (10-53); Alkaline Phosphatase 72 U/L (45-117); Total Protein 7.9 g/dL (6.4-8.2)
--- NOTE | 2017-10-07 22:58 | CT ---
EXAM DATE: 10/07/2017 10:35 PM EDT AGE/SEX: 31 years / Female INDICATIONS: Abdomen pain with fever. CLINICAL DATA: This is the patient's initial encounter. Patient reports that signs and symptoms have been present for 1 day and indicates a pain score of 4/10. MEDICAL/SURGICAL HISTORY: Renal calculi. Lithotripsy. section. ORAL CONTRAST: No oral contrast ingested. RADIATION DOSE: 9.46 CTDI (mGy) [place] [facility] [place]AST, [place]/11/2017. [facility] [place]/O CONT RAST, 10/16/2016. . TECHNIQUE: Multiple contiguous axial images were obtained through the abdomen and pelvis following b olus infusion of 95 ml Omnipaque 350 (iohexol) nonionic water-soluble contrast as a single exam dos e. No oral contrast ingested. Using automated exposure control and adjustment of the mA and/or kV ac cording to patient size, radiation dose was kept as low as reasonably achievable to obtain optimal di agnostic quality images. DICOM format image data is available electronically for review and comparis on. FINDINGS: Lower Lungs: The visualized lower lungs are clear. Liver: The liver has a homogeneous density without space-occupying lesion. There is no dilation of th e biliary tree. No calcified gallstones. Spleen: Homogeneous density without enlargement. Pancreas: Unremarkable without mass or calcification. Kidneys: Abnormal appearance to the right kidney with inhomogeneous pattern of enhancement in the pa renchyma including a regional area of decreased attenuation in the posterior lower pole. There is mil d dilation of the collecting system and there are 2 calcified stones, the larger measuring 10 mm [place] in the renal pelvis and the other measuring 8 mm in the midpole collecting system. There is indur ation of the perinephric fat on the right side. The left kidney, there is a solitary calcified stone in the lower pole renal pelvis measuring 5 mm. No evidence of hydronephrosis. Adrenal Glands: Unremarkable. Aorta: The aorta and proximal iliac vessels are grossly unremarkable without aneurysmal dilation. Bowel/Mesentery: The bowel loops are grossly unremarkable. The cecum and sigmoid colon have a normal configuration. Abdominal Wall: Intact. Retroperitoneum: No evidence of adenopathy in the retrocrural, para-aortic, or deep pelvic regions. Bladder: Contours are smooth. Reproductive Organs: No abnormal masses or calcifications seen. Mild amount of free fluid in the dep endent pelvis. Inguinal: The inguinal region is unremarkable without evidence of adenopathy. Bony Structures: Unremarkable. CONCLUSION: 1. Abnormal appearance to the right kidney with 2 calcified stones located in the midpole and extrar enal pelvis, inhomogeneous enhancement of the parenchyma, and induration of the perinephric fat. The induration of the fat is a new finding when compared to prior CT 09/11/2017 2. Mild amount of free fluid in the dependent pelvis is also a new finding.. Electronically signed by: Bigg Marcano MD 10/07/2017 10:57 PM EDT
[2017-10-07] MEDS ORDERED: GENTAMICIN IV.SIG ONE (23:00)
[2017-10-07] MEDS ORDERED: SODIUM CHLOR 0.9% IV.SIG ONE (23:00)
[2017-10-07] MEDS ORDERED: Bisacodyl 10 MG Supp RECTAL PRN (23:16)
[2017-10-07] MEDS ORDERED: Temazepam 15 MG Capsule PO PRN (23:16)
[2017-10-07] MEDS ORDERED: Acetaminophen 325 MG Tablet PO PRN (23:16)
[2017-10-07] MEDS ORDERED: Gentamicin Consult Pharmacy 1 EACH OTHER SCH (23:45)
--- NOTE | 2017-10-08 00:40 | P.HP ---
History of Present Illness Service: [facility] Primary Care Physician: Brian Ramirez MD History of Present Illness: 31-year-old female with past medical history significant for nephrolithiasis presents the emergency department for evaluation of bilateral flank pain, fevers , chills, lower abdominal pain, nausea and vomiting. The patient reports that her symptoms started yesterday afternoon. She states that she has a sharp/ burning pain when she urinates. She has a history of recently being diagnosed with bilateral ureteral stones she follows with urologist Dr. Ramirez. She is scheduled for a right-sided lithotripsy on October 24. She denies any chest pain or shortness of breath. No lateralizing signs/symptoms. Review of Systems All other systems reviewed negative except as stated in HPI [facility] - History History Provided By: Patient - Medical History Medical History: Medical History (Last Reviewed 10/07/17 @ 18:42 by Jn Kendrick) delivery delivered Kidney stones Migraine Psoriasis - Surgical History Surgical History: Surgical History (Last Reviewed 10/07/17 @ 18:42 by Jn Kendrick) History of lithotripsy - Family History Family History: Family History (Last Updated 10/08/17 @ 00:31 by Donna Sanz MD) Other No family history of cardiac disease - Tobacco History Second Hand Smoke Exposure: No Tobacco Use In Past 30 Days: No Smoking Status: Former smoker Tobacco Type: Cigarettes - Alcohol History How Often Do You Have a Drink Containing Alcohol: 2 to 4 times a month - Substance Use History Substance History: No History of Abuse - Travel History Recent Travel in the [place] Within the Last 8 Weeks: No Recent Travel Out of the Country Within the Last 8 Weeks: No - Immunization History Tetanus Immunization: Unsure Hx Influenza Vaccine This Season: No Medications and Allergies Active Medications: Active Medications Acetaminophen (Tylenol) 650 mg PO Q4H PRN PRN Reason: Temp > 100.4 Al Hydroxide/Mg Hydroxide (Milk Of Magnesia Liq) 30 ml PO Q12H PRN PRN Reason: Mild Constipation Bisacodyl (Dulcolax Supp) 10 mg RECTAL DAILY PRN PRN Reason: SEVERE CONSITIPATION Pharmacy Profile Note (Gentamicin Consult Pharmacy) 0 mls @ 0 mls/hr OTHER UNSCH SAKINA Potassium Chloride/Dextrose/Sod Cl (D5w/1/2ns + Kcl 20 Meq Inj) 1,000 mls @ 100 mls/hr IV.CONT .Q10H SAKINA Gentamicin Sulfate 80 mg/ (Sodium Chloride) 102 mls @ 200 mls/hr IV.SIG Q8H SAKINA Lactulose (Lactulose Liq) 30 ml PO DAILY PRN PRN Reason: SEVERE CONSITIPATION Miscellaneous Information ([facility] [place] Info) 0 each OTHER ONCE ONE Stop: 10/08/17 13:31 Miscellaneous Information ([facility] Ordered Lab Info) 0 each OTHER ONCE ONE Stop: 10/08/17 15:01 Morphine Sulfate (Morphine Inj) 2 mg IV.PUSH Q3H PRN PRN Reason: BREAKTHROUGH PAIN Ondansetron HCl (Zofran Inj) 4 mg IV.PUSH Q6H PRN PRN Reason: NAUSEA OR VOMITING Oxycodone/Acetaminophen (Percocet 5/325 Mg) 1 tab PO Q4H PRN PRN Reason: pain > 4 Sennosides (Senokot) 17.2 mg PO Q12H PRN PRN Reason: Moderate Constipation Temazepam (Restoril) 15 mg PO HS PRN PRN Reason: INSOMNIA Allergies Allergy/AdvReac Type Severity Reaction Status Date / Time No Known Allergies Allergy Verified 10/07/17 18:41 Home Medications Medication Instructions Recorded Confirmed Type [id number] 1 cap PO Q4H PRN 09/05/17 10/07/17 History [Fioricet] tamsulosin [Flomax] 0.4 mg PO HS 10/07/17 10/07/17 History Exam Vital signs: Vital Signs 10/07/17 14:43 10/07/17 18:35 10/07/17 18:43 Temperature 102.4 F H Pulse Rate 66 115 H Respiratory Rate 16 Blood Pressure 137/96 H Pulse Oximetry 100 100 10/07/17 18:45 10/07/17 22:57 Temperature 98.6 F Pulse Rate 115 H 98 H Respiratory Rate 18 16 Blood Pressure 137/72 123/72 Pulse Oximetry 100 99 Intake & Output 10/07/17 10/07/17 10/08/17 06:59 18:59 06:59 Weight 72.575 kg Narrative: Gen.: No acute distress Head: Normocephalic. Atraumatic. EENT: Pupils equal round and reactive to light. Nose without drainage. Airway intact. Throat without injection. Cardiovascular: Regular rate and rhythm. No murmurs, rubs or gallops. Respiratory: Lungs clear to auscultation bilaterally. No wheezes or rhonchi. Abdomen: Soft, tender to palpation in the suprapubic region, nondistended. No peritoneal signs. : No CVA tenderness Musculoskeletal: No gross deformities. No edema. Skin: No obvious rashes or erythema. Neuro: Sensory and motor grossly intact. Cranial nerves II through XII grossly intact. Results - Labs CBC & Chem 7: 10/07/17 18:45 10/07/17 18:45 Labs: Laboratory Results - last 24 hr 10/07/17 10/07/17 08 18:45 18:45 18:45 WBC 9.3 RBC 4.82 Hgb 14.2 Hct 42.1 MCV 87.3 MCH 29.5 MCHC 33.7 RDW 13.9 Plt Count 164 D MPV 10.1 Neut % (Auto) 72.3 H Lymph % (Auto) 20.9 [place] % (Auto) 6.3 Eos % (Auto) 0.2 Baso % (Auto) 0.3 Neut # (Auto) 6.7 Lymph # (Auto) 2.0 [place] # (Auto) 0.6 Eos # (Auto) 0.0 Baso # (Auto) 0.0 WBC Differential . Differential Comment Auto diff final Sodium 135 L Potassium 3.2 L Chloride 102 Carbon Dioxide 22.4 Anion Gap 11 BUN 8 Creatinine 0.96 Estimated GFR 67 L Random Glucose 105 Lactic Acid 1.1 Calcium 9.8 Total Bilirubin 0.8 AST 14 L ALT 22 Alkaline Phosphatase 72 Total Protein 7.9 Albumin 3.9 Urine Color Urine Clarity Urine pH Ur Specific [place] Urine Protein Urine Glucose (UA) Urine Ketones Urine Occult Blood Urine Nitrate Urine Bilirubin Urine Urobilinogen Ur Leukocyte Esterase Urine RBC Urine WBC Ur Squamous Epith Cells Urine Bacteria Urine Mucus Micro UA Comment Urine Culture Comments 10/07/17 18:45 WBC RBC Hgb Hct MCV MCH MCHC RDW Plt Count MPV Neut % (Auto) Lymph % (Auto) [place] % (Auto) Eos % (Auto) Baso % (Auto) Neut # (Auto) Lymph # (Auto) [place] # (Auto) Eos # (Auto) Baso # (Auto) WBC Differential Differential Comment Sodium Potassium Chloride Carbon Dioxide Anion Gap BUN Creatinine Estimated GFR Random Glucose Lactic Acid Calcium Total Bilirubin AST ALT Alkaline Phosphatase Total Protein Albumin Urine Color Yellow Urine Clarity Hazy H Urine pH 6.0 Ur Specific [place] 1.013 Urine Protein 100 H Urine Glucose (UA) Negative Urine Ketones 20 Urine Occult Blood Large H Urine Nitrate Negative Urine Bilirubin Negative Urine Urobilinogen Less than 2 Ur Leukocyte Esterase Large H Urine RBC Urine WBC 149 H Ur Squamous Epith Cells 2 Urine Bacteria Moderate H Urine Mucus Few H Micro UA Comment Culture indicated Urine Culture Comments Culture indicated - Imaging Impressions Abdomen/Pelvis CT 10/07/17 18:35 CONCLUSION: 1. Abnormal appearance to the right kidney with 2 calcified stones located in the midpole and extrarenal pelvis, inhomogeneous enhancement of the parenchyma, and induration of the perinephric fat. The induration of the fat is a new finding when compared to prior CT 09/11/2017 2. Mild amount of free fluid in the dependent pelvis is also a new finding.. Caprini VTE Risk Assessment Caprini VTE Risk Assessment: No/Low Risk (score <= 1) Caprini Risk Assessment Model: Point Value = 1 Point Value = 2 Point Value = 3 Point Value = 5 Age 41-60 Minor surgery BMI > 25 kg/m2 Swollen legs Varicose veins or History of unexplained or recurrent spontaneous Oral contraceptives or hormone replacement Sepsis (< 1 month) Serious lung disease, including pneumonia (< 1 month) Abnormal pulmonary function Acute myocardial infarction Congestive heart failure (< 1 month) History of inflammatory bowel disease Medical patient at bed rest Age 61-74 Arthroscopic surgery Major open surgery (> 45 min) Laparoscopic surgery (> 45 min) Malignancy Confined to bed (> 72 hours) Immobilizing plaster cast Central venous access Age >= 75 History of VTE Family history of VTE Factor V Leiden Prothrombin [id number] Lupus anticoagulant Anticardiolipin antibodies Elevated serum homocysteine Heparin-induced thrombocytopenia Other congenital or acquired thrombophilia Stroke (< 1 month) Elective arthroplasty Hip, pelvis, or leg fracture Acute spinal cord injury (< 1 month) Prophylaxis Regimen: Total Risk Factor Score Risk Level Prophylaxis Regimen 0-1 Low Early ambulation 2 Moderate Order ONE of the following: *Sequential Compression Device (SCD) *Heparin 5000 units SQ BID 3-4 Higher Order ONE of the following medications: *Heparin 5000 units SQ TID *Enoxaparin/Lovenox 40 mg SQ daily (WT < 150 kg, CrCl > 30 mL/min) *Enoxaparin/Lovenox 30 mg SQ daily (WT < 150 kg, CrCl > 10-29 mL/min) *Enoxaparin/Lovenox 30 mg SQ BID (WT < 150 kg, CrCl > 30 mL/min) AND/OR *Sequential Compression Device (SCD) 5 or more Highest Order ONE of the following medications: *Heparin 5000 units SQ TID (Preferred with Epidurals) *Enoxaparin/Lovenox 40 mg SQ daily (WT < 150 kg, CrCl > 30 mL/min) *Enoxaparin/Lovenox 30 mg SQ daily (WT < 150 kg, CrCl > 10-29 mL/min) *Enoxaparin/Lovenox 30 mg SQ BID (WT < 150 kg, CrCl > 30 mL/min) AND *Sequential Compression Device (SCD) Assessment and Plan - Plan Assessment/plan: 1. Urosepsis UA consistent with urinary tract infection Patient with history of urinary tract infection that grew enterococcus susceptible to linezolid, daptomycin and gentamicin Patient completed a 10 day course of oral linezolid in early September Gentamicin Urine culture pending Urology consulted, appreciate recommendations Telemetry IV fluid hydration 2. Hypokalemia Status post repletion Monitor BMP FEN N.p.o. Electrolytes: As above NS +20 KCl at 100 cc/hour
[2017-10-08] MEDS: KCL 20 mEq/D5W/NaCl 0.45% Inj 1,000 ML IV.CONT SCH ×2 (01:31→12:33)
[2017-10-08] MEDS: Gentamicin Inj 80 MG in Sodium Chlor 0.9% Inj 100 ML IV.SIG SCH ×3 (05:55→22:57)
--- NOTE | 2017-10-08 08:31 | P.PN ---
Subjective Interval history: Follow-up flank pain. Improving pain. Having her menses since yesterday Physical Exam Vital signs: Vital Signs 10/07/17 14:43 10/07/17 18:35 10/07/17 18:43 Temperature 102.4 F H Pulse Rate 66 115 H Respiratory Rate 16 Blood Pressure 137/96 H Pulse Oximetry 100 100 10/07/17 18:45 10/07/17 22:57 Temperature 98.6 F Pulse Rate 115 H 98 H Respiratory Rate 18 16 Blood Pressure 137/72 123/72 Pulse Oximetry 100 99 Intake & Output 10/07/17 10/08/17 10/08/17 18:59 06:59 18:59 Output Total 300 / 300 Balance -300 / -300 Weight 72.575 kg Output: Urine 300 / 300 Narrative: Gen.: No acute distress Cardiovascular: Regular rate and rhythm. No murmurs, rubs or gallops. Respiratory: Lungs clear to auscultation bilaterally. No wheezes or rhonchi. Abdomen: Soft, tender to palpation in the suprapubic region, nondistended. No peritoneal signs. : Mild right CVA tenderness Musculoskeletal: No gross deformities. No edema. Skin: No obvious rashes or erythema. Neuro: Sensory and motor grossly intact. Cranial nerves II through XII grossly intact. Results - Labs CBC & Chem 7: 10/07/17 18:45 10/07/17 18:45 Laboratory Results - last 24 hr 10/07/17 10/07/17 10/07/17 18:45 18:45 18:45 WBC 9.3 RBC 4.82 Hgb 14.2 Hct 42.1 MCV 87.3 MCH 29.5 MCHC 33.7 RDW 13.9 Plt Count 164 D MPV 10.1 Neut % (Auto) 72.3 H Lymph % (Auto) 20.9 [place] % (Auto) 6.3 Eos % (Auto) 0.2 Baso % (Auto) 0.3 Neut # (Auto) 6.7 Lymph # (Auto) 2.0 [place] # (Auto) 0.6 Eos # (Auto) 0.0 Baso # (Auto) 0.0 WBC Differential . Differential Comment Auto diff final Sodium 135 L Potassium 3.2 L Chloride 102 Carbon Dioxide 22.4 Anion Gap 11 BUN 8 Creatinine 0.96 Estimated GFR 67 L Random Glucose 105 Lactic Acid 1.1 Calcium 9.8 Total Bilirubin 0.8 AST 14 L ALT 22 Alkaline Phosphatase 72 Total Protein 7.9 Albumin 3.9 Urine Color Urine Clarity Urine pH Ur Specific [place] Urine Protein Urine Glucose (UA) Urine Ketones Urine Occult Blood Urine Nitrate Urine Bilirubin Urine Urobilinogen Ur Leukocyte Esterase Urine RBC Urine WBC Ur Squamous Epith Cells Urine Bacteria Urine Mucus Micro UA Comment Urine Culture Comments 10/07/17 18:45 WBC RBC Hgb Hct MCV MCH MCHC RDW Plt Count MPV Neut % (Auto) Lymph % (Auto) [place] % (Auto) Eos % (Auto) Baso % (Auto) Neut # (Auto) Lymph # (Auto) [place] # (Auto) Eos # (Auto) Baso # (Auto) WBC Differential Differential Comment Sodium Potassium Chloride Carbon Dioxide Anion Gap BUN Creatinine Estimated GFR Random Glucose Lactic Acid Calcium Total Bilirubin AST ALT Alkaline Phosphatase Total Protein Albumin Urine Color Yellow Urine Clarity Hazy H Urine pH 6.0 Ur Specific [place] 1.013 Urine Protein 100 H Urine Glucose (UA) Negative Urine Ketones 20 Urine Occult Blood Large H Urine Nitrate Negative Urine Bilirubin Negative Urine Urobilinogen Less than 2 Ur Leukocyte Esterase Large H Urine RBC Urine WBC 149 H Ur Squamous Epith Cells 2 Urine Bacteria Moderate H Urine Mucus Few H Micro UA Comment Culture indicated Urine Culture Comments Culture indicated Microbiology 10/07/17 18:45 Throat Group A Streptococcus Screen (VADIM) - Final - Imaging Impressions Abdomen/Pelvis CT 10/07/17 18:35 CONCLUSION: 1. Abnormal appearance to the right kidney with 2 calcified stones located in the midpole and extrarenal pelvis, inhomogeneous enhancement of the parenchyma, and induration of the perinephric fat. The induration of the fat is a new finding when compared to prior CT 09/11/2017 2. Mild amount of free fluid in the dependent pelvis is also a new finding.. Assessment and Plan - Plan 1. Sepsis UA consistent with urinary tract infection Patient with history of urinary tract infection that grew enterococcus susceptible to linezolid, daptomycin and gentamicin Patient completed a 10 day course of oral linezolid in early September Gentamicin Urine culture pending Urology consulted, patient has right ureteropelvic junction stone causing obstruction with pyelonephritis. Plan for cystoscopy with right double-J stent tomorrow if she remains stable Telemetry IV fluid hydration 2. Hypokalemia Status post repletion Monitor BMP FEN regular diet Electrolytes: As above NS +20 KCl at 100 cc/hour Discharge Planning: Not ready for discharge needing IV antibiotics procedure tomorrow
--- NOTE | 2017-10-08 10:16 | MB ---
cc: BiggJuan DiegoShan Tony DO DATE: 10/08/2017 HISTORY OF PRESENT ILLNESS: Ms. Tapia is a pleasant 31-year-old female with a history of nephrolithiasis who presents with right-sided flank pain and fever up to 102. CT scan in the emergency room demonstrated an 8-9 mm right proximal UPJ stone with a 7 mm stone in the right lower pole, which is nonobstructing. She also has a 6 mm left lower pole stone, which is also nonobstructing. She does have a history of stones in the past, but denies any other significant medical problems. PAST MEDICAL HISTORY: Her medical history includes nephrolithiasis and psoriasis along with migraine headaches. PAST SURGICAL HISTORY: Noted for cystoscopy with stent insertion and lithotripsy and a . FAMILY HISTORY: Noted for uncle with history of stones. SOCIAL HISTORY: She denies any smoking at present, but was a former smoker. She drinks alcohol 2-4 times a month, but denies any history of substance abuse. REVIEW OF SYSTEMS: Notes right-sided flank pain, nausea, vomiting, fever, or chills. Denies chest pain or shortness of breath. Denies diarrhea or constipation. Denies gait disturbances, bleeding disorder, psychiatric problems or skin lesions. Remaining review of systems were reviewed and were negative. PHYSICAL EXAMINATION: VITAL SIGNS: Today, temperature is 97.7, heart rate 94, respiratory rate 18, 129/84 is her blood pressure. GENERAL: She is a well-developed, well-nourished, 31-year-old female in no acute distress. HEENT: Normocephalic, atraumatic. Pupils equal, round, regular, reactive to light. Extraocular movements intact. NECK: Supple. HEART: Regular rate and rhythm. LUNGS: Clear. ABDOMEN: Soft with right-sided tenderness. OLIVER: Right CVA tenderness is noted. GENITOURINARY: Normal female external genitalia with no cyanosis, clubbing, or edema. NEUROLOGIC: Cranial nerves 2-12 are intact. LABORATORY DATA: White count is noted to be 9.3, hemoglobin 14.2, hematocrit of 42.1, platelet count of 164. Sodium 135, potassium 3.2, chloride 102, CO2 of 22.4, BUN of 8, creatinine 0.96, glucose of 105. Urinalysis shows large leukocyte esterase, 149 white cells, numerous red cells, nitrate is negative. IMAGING STUDIES: CT scan again shows 2 right renal stones with a right UPJ stone causing obstruction and a 6 mm nonobstructing left renal stone. ASSESSMENT: This is a 31-year-old female with a right ureteropelvic junction stone causing obstruction with pyelonephritis. We will plan for cystoscopy with right double-J stent tomorrow, n.p.o. after midnight tonight, continue IV antibiotics. She will need outpatient followup with Dr. Ramirez for possible lithotripsy. DO VELMA Hutton/DAKOTAH , 09:55 AM , 10:03 AM
[2017-10-08] MEDS ORDERED: Pharmacy Ordered Lab Info OTHER ONE ×4 (13:30→23:00)
[2017-10-08 15:02] LABS: Baso % (Auto) 0.3 % (0.0-2.0); Eos # (Auto) 0.1 th/mm3 (0.0-0.4); Hematocrit 34.1 % (35.0-46.0); Hemoglobin 11.5 gm/dL (11.6-15.3); Lymph # (Auto) 1.5 th/mm3 (1.0-4.8); Lymph % (Auto) 21.5 % (9.0-44.0); Mean Corpuscular HGB Conc 33.8 % (32.0-36.0); Mean Corpuscular Hemoglobin 30.1 pg (27.0-34.0); Mean Corpuscular Volume 88.9 fL (80.0-100.0); Mono # (Auto) 0.7 th/mm3 (0.0-0.9); Mono % (Auto) 10.7 % (0.0-8.0); Neut # (Auto) 4.6 th/mm3 (1.8-7.7); Neut % (Auto) 65.5 % (16.0-70.0); Platelet Count 133 th/mm3 (150-450); Red Blood Count 3.84 mil/mm3 (4.00-5.30); Red Cell Distribution Width 14.9 % (11.6-17.2)
[2017-10-08 15:27] LABS: Anion Gap 6 meq/L (5-15); Blood Urea Nitrogen 7 mg/dL (7-18); Calcium 8.9 mg/dL (8.5-10.1); Carbon Dioxide 23.2 meq/L (21.0-32.0); Chloride 113 meq/L (98-107); Glomerular Filtration Rate Greater Than 89 mL/min (>89); Glucose,Random 103 mg/dL (74-106); Potassium 3.8 meq/L (3.5-5.1); Sodium 142 meq/L (136-145)
[2017-10-08] MEDS: Morphine Inj 4 MG/ML Vial IV.PUSH PRN (21:37)
[2017-10-09] MEDS: KCL 20 mEq/D5W/NaCl 0.45% Inj 1,000 ML IV.CONT SCH ×3 (06:06→19:00)
[2017-10-09] MEDS: Gentamicin Inj 80 MG in Sodium Chlor 0.9% Inj 100 ML IV.SIG SCH ×3 (06:06→20:42)
[2017-10-09] MEDS ORDERED: Lidocaine PF 1% Inj 5 ML Syringe INFILTRATN ONE (12:00)
[2017-10-09] MEDS ORDERED: Chlorhexidine Gluconate 2% 1 Pack (2 Cloths) TOPICAL SCH (13:45)
[2017-10-09] MEDS ORDERED: Metoprolol Tartrate 25 MG Tablet PO SCH (13:45)
[2017-10-09] MEDS ORDERED: Sodium Chlor 0.9% Inj 500 ML IV.SIG SCH (14:00)
--- NOTE | 2017-10-09 15:00 | P.OP ---
- Preoperative Diagnosis (1) Pyelonephritis (2) Renal calculus, bilateral - Postoperative Diagnosis (1) Pyelonephritis (2) Renal calculus, bilateral Date of procedure: 10/09/17 Procedure: Cystoscopy with right retrograde pyelogram and right double-J stent insertion Anesthesia: other (General LMA) Surgeon: Shan Pride DO Estimated blood loss (mL): 0 Operation and Findings: 31-year-old female who presented with right-sided pyelonephritis with obstructing 8-9 mm UPJ stone and a nonobstructing right renal stone. Decision was made for the patient undergo cystoscopy right double-J stent insertion to relieve her obstruction. Risk and benefits were discussed preoperatively and she was willing to proceed. Patient was brought to the operating room and identified by myself as Annemarie Tapia. She was placed in the dorsal lithotomy position, prepped and draped in sterile fashion, received preprocedure antibiotics and general LMA anesthesia was administered. The 22 [place] cystoscope was inserted in the bladder carrillo cystoscopy did not reveal any abdomen was performed. The stone was lodged in the right UPJ area. A 0.35 sensor wire was then passed through the open-ended catheter and up into the kidney. A 6 [place] 22 cm right double-J stent was then passed up into the kidney over the wire without difficulty. The stent was in good position and the bladder was evacuated. She was awoken, extubated and transferred recovery room in stable condition. She will follow-up with Dr. Ramirez as an outpatient undergo possible right extracorporeal shockwave lithotripsy in the future.
[2017-10-09] MEDS ORDERED: fentaNYL Citrate Inj 100 MCG/2 ML Ampul ONE (15:08)
[2017-10-09] MEDS ORDERED: *morphine SULFATE 10 MG/ML PERIprocedure ONLY ONE (15:14)
--- NOTE | 2017-10-09 16:34 | P.PN ---
Subjective Interval history: Follow-up sepsis and pyelonephritis. Tolerated procedure. Still complaining of right flank pain. Physical Exam Vital signs: Vital Signs 10/08/17 20:00 10/09/17 00:00 10/09/17 08:00 Temperature 98.6 F 99.5 F 97.9 F Pulse Rate 110 H 105 H 78 Respiratory Rate 20 20 14 Blood Pressure 115/67 127/66 122/75 Pulse Oximetry 98 98 100 10/09/17 12:00 Temperature 97.8 F Pulse Rate 79 Respiratory Rate 16 Blood Pressure 105/64 Pulse Oximetry 100 Intake & Output 10/08/17 10/09/17 10/09/17 18:59 06:59 18:59 Intake Total 2001 1204 / 1204 902 / 902 Output Total 0 / 0 Balance 2001 1204 / 1204 902 / 902 Intake: IV 1102 / 1102 1204 / 1204 102 / 102 D5W/1/2NS + KCL 20 mEq Inj 1, 1000 / 1000 1000 / 1000 000 ML @ 100 mls/hr IV.CONT . Q10H SAKINA Rx#:[id number] Gentamicin Inj 80 MG In NS Inj 102 / 102 204 / 204 102 / 102 100 ML @ 200 mls/hr IV.SIG Q8H SAKINA Rx#:[id number] Oral 900 / 900 Anesthesia Amount 800 / 800 Other 0 / 0 Output: Urine 0 / 0 Other: # Voids 4 2 # Bowel Movements 0 Narrative: Gen.: No acute distress Cardiovascular: Regular rate and rhythm. No murmurs, rubs or gallops. Respiratory: Lungs clear to auscultation bilaterally. No wheezes or rhonchi. Abdomen: Soft, tender to palpation in the suprapubic region, nondistended. : Mild right CVA tenderness Musculoskeletal: No gross deformities. No edema. Skin: No obvious rashes or erythema. Neuro: Sensory and motor grossly intact. Cranial nerves II through XII grossly intact. Results - Labs CBC & Chem 7: 10/08/17 14:29 10/08/17 14:29 Laboratory Results - last 24 hr 10/08/17 10/09/17 21:54 01:30 Gentamicin Peak 2.7 L Gentamicin Trough 0.4 Microbiology 10/07/17 18:45 Clean Catch Urine Urine Culture - Final Enterococcus faecium VRE 08/06/18 18:40 Blood - Peripheral Aerobic Blood Culture - Preliminary No growth in 2 days 10/07/17 18:40 Blood - Peripheral Anaerobic Blood Culture - Preliminary No growth in 2 days 10/07/17 18:45 Blood - Peripheral Aerobic Blood Culture - Preliminary No growth in 2 days 10/07/17 18:45 Blood - Peripheral Anaerobic Blood Culture - Preliminary No growth in 2 days 10/07/17 18:45 Throat Group A Streptococcus Screen/Cult - Final No Beta Streptococci isolated. - Procedures Cystoscopy with right retrograde pyelogram and right double-J stent insertion Assessment and Plan - Plan 1. Sepsis UA consistent with urinary tract infection Patient with history of urinary tract infection that grew enterococcus susceptible to linezolid, daptomycin and gentamicin Patient completed a 10 day course of oral linezolid in early September Continue IV gentamicin Urine culture again with enterococcus faecium. Will consult infectious disease Urology consulted, patient has right ureteropelvic junction stone causing obstruction with pyelonephritis s/p cystoscopy with right retrograde pyelogram and right double-J stent insertion. Continue postoperative care and pain management. Counseled regarding narcotics IV fluid hydration 2. Hypokalemia Status post repletion Monitor BMP FEN regular diet Electrolytes: As above NS +20 KCl at 100 cc/hour Discharge Planning: Discharge when cleared by and infectious disease
[2017-10-09] MEDS: Morphine Inj 4 MG/ML Vial IV.PUSH PRN (20:42)
[2017-10-09] MEDS ORDERED: Pharmacy Ordered Lab Info OTHER ONE (23:00)
[2017-10-10] MEDS: Gentamicin Inj 80 MG in Sodium Chlor 0.9% Inj 100 ML IV.SIG SCH (05:27)
[2017-10-10] MEDS: Morphine Inj 4 MG/ML Vial IV.PUSH PRN ×2 (05:31→23:13)
--- NOTE | 2017-10-10 12:39 | P.CONID ---
History of Present Illness Service: ID Consult date: 10/10/17 Requesting Physician: Juancho Gu Reason for Consult: UTI VRE Primary Care Provider: Brian Ramirez MD History of Present Illness: 31 yo with 10 yrs h/o nephrolithiasis s lithotripsy started to havce frequent kidney colic episode for the l;ast 2 yrs Last time presented with R side kidney colic and was also diagnosed with UTI 2/ 2 VRE started on zyvox, which she completed and later her symproms returned including fever chills and R side pain CT showed R ureter stones, R sided pyelo without hydro and she underwent stent palcement Pt started on fgentamycin per cl x report She feels better, no fever, subsided pain C/o posprocedural mild hematuria UA abnomrla with 1`49 WBC, clx again positive for VRE Review of Systems All other systems reviewed negative except as stated in HPI PMFSH - History History Provided By: Patient - Medical History Medical History: Medical History (Last Reviewed 10/11/17 @ 01:57 by Josefina Alexander MD) delivery delivered Kidney stones Migraine Psoriasis - Surgical History Surgical History: Surgical History (Last Reviewed 10/11/17 @ 01:57 by Josefina Alexander MD) History of lithotripsy - Family History Family History: Family History (Last Reviewed 10/11/17 @ 01:57 by Josefina Alexander MD) Other No family history of cardiac disease - Tobacco History Second Hand Smoke Exposure: No Tobacco Use In Past 30 Days: No Smoking Status: Never smoker Tobacco Type: Cigarettes - Alcohol History How Often Do You Have a Drink Containing Alcohol: Never - Substance Use History Substance History: No History of Abuse - Travel History Recent Travel in the [place] Within the Last 8 Weeks: No Recent Travel Out of the Country Within the Last 8 Weeks: No - Immunization History Tetanus Immunization: Unsure Hx Influenza Vaccine This Season: No Medications and Allergies Active Medications: Active Medications Acetaminophen (Tylenol) 650 mg PO Q4H PRN PRN Reason: Temp > 100.4 Al Hydroxide/Mg Hydroxide (Milk Of Magnesia Liq) 30 ml PO Q12H PRN PRN Reason: Mild Constipation Last Admin: 10/10/17 05:31 Dose: 30 ml Bisacodyl (Dulcolax Supp) 10 mg RECTAL DAILY PRN PRN Reason: SEVERE CONSITIPATION Chlorhexidine Gluconate (Chlorhexidine 2% Cloth) 3 pack [employer] [facility] Stop: 10/12/17 13:38 Pharmacy Profile Note (Gentamicin Consult Pharmacy) 0 mls @ 0 mls/hr OTHER UNSCH [facility] Potassium Chloride/Dextrose/Sod Cl (D5w/1/2ns + Kcl 20 Meq Inj) 1,000 mls @ 100 mls/hr IV.CONT .Q10H [facility] Last Admin: 10/09/17 19:00 Dose: 100 mls/hr Gentamicin Sulfate 80 mg/ (Sodium Chloride) 102 mls @ 200 mls/hr IV.SIG Q8H [facility] Last Admin: 10/10/17 05:27 Dose: 200 mls/hr Sodium Chloride (Ns Inj) 500 mls @ 30 mls/hr IV.SIG .Q10H [facility] Stop: 10/12/17 13:38 Lactated Ringer's (Lr 1000 Ml Inj) 1,000 mls @ 30 mls/hr IV.SIG .Q24H [facility] Stop: 10/12/17 13:38 Last Admin: 10/09/17 18:31 Dose: 30 mls/hr Lactulose (Lactulose Liq) 30 ml PO DAILY PRN PRN Reason: SEVERE CONSITIPATION Metoprolol Tartrate (Lopressor) 25 mg PO [employer] [facility] Stop: 10/12/17 13:38 Miscellaneous Information ([facility] Nursing Information) 1 each OTHER UNSCH PRN PRN Reason: SEE LABEL COMMENTS Stop: 10/10/17 15:01 Morphine Sulfate (Morphine Inj) 2 mg IV.PUSH Q3H PRN PRN Reason: BREAKTHROUGH PAIN Last Admin: 10/10/17 05:31 Dose: 2 mg Ondansetron HCl (Zofran Inj) 4 mg IV.PUSH Q6H PRN PRN Reason: NAUSEA OR VOMITING Oxycodone/Acetaminophen (Percocet 5/325 Mg) 1 tab PO Q4H PRN PRN Reason: pain > 4 Last Admin: 10/10/17 10:36 Dose: 1 tab Povidone Iodine (Betadine 5% Antisepsis Kit) 1 applicatio EACH [employer] [facility] Stop: 10/12/17 13:38 Sennosides (Senokot) 17.2 mg PO Q12H PRN PRN Reason: Moderate Constipation Allergies Allergy/AdvReac Type Severity Reaction Status Date / Time No Known Allergies Allergy Verified 10/07/17 18:41 Home Medications Medication Instructions Recorded Confirmed Type [id number]-[id number]-pvcc 1 cap PO Q4H PRN 09/05/17 10/07/17 History [Fioricet] tamsulosin [Flomax] 0.4 mg PO HS 10/07/17 10/07/17 History Exam Vital signs: Vital Signs 10/09/17 15:02 10/09/17 15:15 10/09/17 15:30 Temperature 98 F Pulse Rate 84 88 75 Respiratory Rate 16 16 16 Blood Pressure 116/78 114/82 119/77 Pulse Oximetry 100 99 98 10/09/17 15:45 10/09/17 20:38 10/10/17 00:06 Temperature 98 F 98.0 F 97.5 F L Pulse Rate 85 97 H 86 Respiratory Rate 16 18 18 Blood Pressure 119/77 140/80 121/74 Pulse Oximetry 99 96 96 Intake & Output 10/09/17 10/10/17 10/10/17 18:59 06:59 18:59 Intake Total 2001 882 / 882 Balance 2001 882 / 882 Weight 72.5 kg Intake: IV 1102 / 1102 102 / 102 D5W/1/2NS + KCL 20 mEq Inj 1, 1000 / 1000 000 ML @ 100 mls/hr IV.CONT . Q10H [facility] Rx#:[id number] Gentamicin Inj 80 MG In NS Inj 102 / 102 102 / 102 100 ML @ 200 mls/hr IV.SIG Q8H [facility] Rx#:[id number] Oral 780 / 780 Anesthesia Amount 800 / 800 Other 100 / 100 Other: # Voids 3 - Constitutional no acute distress, average body habitus - Routine HEENT Exam Head: Present: normocephalic, atraumatic Eye: Present: EOMI, PERRL ENT: Present: mucous membranes moist, oropharynx clear - Routine Neck Exam Present: supple, full ROM - Routine Respiratory Exam Present: decreased breath sounds, CTA bilaterally - Routine Cardiovascular Exam Present: RRR, S1, S2 - Routine Abdominal Exam Present: soft, normoactive bowel sounds Comments: not tender not distedde, no hepatosplenomegaly or masses - Routine Exam Comments: no CVA tenderness L Mild CVA tenderness on the R - Routine Extremities Exam Comments: no cyanosis clubbing edema - Routine Skin Exam Present: intact, dry, warm - Routine Neurological Exam Present: alert, oriented X3, CN II-XII intact, moving all extremities - Routine Psychiatric Exam Present: normal affect, normal thought process Results - Labs CBC & Chem 7: 10/08/17 14:29 10/08/17 14:29 Labs: Laboratory Results - last 24 hr 10/09/17 10/10/17 01:30 00:06 Gentamicin Peak 2.7 L 2.1 L Assessment and Plan - Plan Complicated UTI in a pt with renal stone disease R pyelonephritis VRE Failed treatment most madden 2/2 obstructive uropthy sp stent placement dc gentamycin start Zyvox anticipate transition to po, Rx total 14 days monitor CBC, bicarb while on zyvox
--- NOTE | 2017-10-10 14:50 | P.PN ---
Subjective Interval history: F/U pyelo. Still with flank pain and dysuria dw ID Physical Exam Vital signs: Vital Signs 10/09/17 15:02 10/09/17 15:15 10/09/17 15:30 Temperature 98 F Pulse Rate 84 88 75 Respiratory Rate 16 16 16 Blood Pressure 116/78 114/82 119/77 Pulse Oximetry 100 99 98 10/09/17 15:45 10/09/17 20:38 10/10/17 00:06 Temperature 98 F 98.0 F 97.5 F L Pulse Rate 85 97 H 86 Respiratory Rate 16 18 18 Blood Pressure 119/77 140/80 121/74 Pulse Oximetry 99 96 96 10/10/17 08:00 10/10/17 12:00 Temperature 97.5 F L 97.9 F Pulse Rate 73 74 Respiratory Rate 18 18 Blood Pressure 126/74 136/87 Pulse Oximetry 98 99 Intake & Output 10/09/17 10/10/17 10/10/17 18:59 06:59 18:59 Intake Total 2001 882 / 882 Balance 2001 882 / 882 Weight 72.5 kg Intake: IV 1102 / 1102 102 / 102 D5W/1/2NS + KCL 20 mEq Inj 1, 1000 / 1000 000 ML @ 100 mls/hr IV.CONT . Q10H [facility] Rx#:[id number] Gentamicin Inj 80 MG In NS Inj 102 / 102 102 / 102 100 ML @ 200 mls/hr IV.SIG Q8H [facility] Rx#:[id number] Oral 780 / 780 Anesthesia Amount 800 / 800 Other 100 / 100 Other: # Voids 3 Narrative: Gen.: No acute distress Cardiovascular: Regular rate and rhythm. No murmurs, rubs or gallops. Respiratory: Lungs clear to auscultation bilaterally. Abdomen: Soft, tender to palpation in the suprapubic region, nondistended. : Mild right CVA tenderness Musculoskeletal: No gross deformities. No edema. Skin: No obvious rashes or erythema. Neuro: Sensory and motor grossly intact. Cranial nerves II through XII grossly intact. Results - Labs CBC & Chem 7: 10/08/17 14:29 10/08/17 14:29 Laboratory Results - last 24 hr 10/09/17 10/10/17 01:30 00:06 Gentamicin Peak 2.7 L 2.1 L Microbiology 10/07/17 18:40 Blood - Peripheral Aerobic Blood Culture - Preliminary No growth in 3 days 10/07/17 18:40 Blood - Peripheral Anaerobic Blood Culture - Preliminary No growth in 3 days 10/07/17 18:45 Blood - Peripheral Aerobic Blood Culture - Preliminary No growth in 3 days 10/07/17 18:45 Blood - Peripheral Anaerobic Blood Culture - Preliminary No growth in 3 days 10/07/17 18:45 Clean Catch Urine Urine Culture - Final Enterococcus faecium VRE - Procedures Cystoscopy with right retrograde pyelogram and right double-J stent insertion Assessment and Plan - Plan 1. Sepsis UA consistent with urinary tract infection Patient with history of urinary tract infection that grew enterococcus susceptible to linezolid, daptomycin and gentamicin Patient completed a 10 day course of oral linezolid in early September Continue IV gentamicin Urine culture again with enterococcus faecium. Consulted infectious disease awaiting recommendations Urology consulted, patient has right ureteropelvic junction stone causing obstruction with pyelonephritis s/p cystoscopy with right retrograde pyelogram and right double-J stent insertion. Continue postoperative care and pain management. Counseled regarding narcotics. Eforcse queried IV fluid hydration 2. Hypokalemia Status post repletion Monitor BMP FEN regular diet Electrolytes: As above NS +20 KCl at 100 cc/hour Discharge Planning: Discharge when cleared by and infectious disease
[2017-10-10] MEDS: KCL 20 mEq/D5W/NaCl 0.45% Inj 1,000 ML IV.CONT SCH ×4 (20:39→20:43)
[2017-10-10] MEDS: Gentamicin Inj 100 MG in Sodium Chlor 0.9% Inj 100 ML IV.SIG SCH (20:41)
[2017-10-11] MEDS: Gentamicin Inj 100 MG in Sodium Chlor 0.9% Inj 100 ML IV.SIG SCH (01:13)
[2017-10-11] MEDS: KCL 20 mEq/D5W/NaCl 0.45% Inj 1,000 ML IV.CONT SCH (11:14)
--- NOTE | 2017-10-11 12:53 | P.DS ---
Date of admission: 10/10/17 16:56 Primary care physician: Brian Ramirez MD Brief History from admission: 31-year-old female with past medical history significant for nephrolithiasis presents the emergency department for evaluation of bilateral flank pain, fevers , chills, lower abdominal pain, nausea and vomiting. The patient reports that her symptoms started yesterday afternoon. She states that she has a sharp/ burning pain when she urinates. She has a history of recently being diagnosed with bilateral ureteral stones she follows with urologist Dr. Ramirez. She is scheduled for a right-sided lithotripsy on October 24. She denies any chest pain or shortness of breath. No lateralizing signs/symptoms. DS: Medications - Discharge Medications Prescriptions: linezolid 600 mg PO Q12H #26 tab oxycodone-acetaminophen 1 tab PO Q6H PRN #12 tab PRN Reason: Acute pain DS: Summary Hospital Course: 1. Sepsis UA consistent with urinary tract infection Patient with history of urinary tract infection that grew enterococcus susceptible to linezolid, daptomycin and gentamicin Patient completed a 10 day course of oral linezolid in early September Urine culture again with enterococcus faecium. Consulted infectious disease recommend Zyvox for total of 14 days DC gentamicin. Patient aware possible side effects of thrombocytopenia optical and peripheral neuropathy from Zyvox weekly CBC and BMP Urology consulted, patient has right ureteropelvic junction stone causing obstruction with pyelonephritis s/p cystoscopy with right retrograde pyelogram and right double-J stent insertion. Continue postoperative care and pain management. Counseled regarding narcotics. Eforcse queried IV fluid hydration 2. Hypokalemia Status post repletion Monitor BMP FEN regular diet Electrolytes: As above NS +20 KCl at 100 cc/hour - Time Spent with Patient Total time spent providing and/or coordinating discharge services: Greater than 30 minutes - Quality: VTE Deep Vein Thrombosis/Pulmonary Embolism Present on Admission: No Exam Vital signs: Vital Signs 10/10/17 16:00 10/10/17 20:21 10/11/17 00:00 Temperature 99.4 F 97.6 F 98.7 F Pulse Rate 90 67 87 Respiratory Rate 16 17 17 Blood Pressure 138/86 140/90 114/68 Pulse Oximetry 100 96 97 10/11/17 08:00 Temperature 97.4 F L Pulse Rate 83 Respiratory Rate 18 Blood Pressure 120/64 Pulse Oximetry 99 Intake & Output 10/10/17 10/11/17 10/11/17 18:59 06:59 18:59 Intake Total 1200 / 1200 2045.0 / 2045.0 Balance 1200 / 1200 2045.0 / 2045.0 Weight 72.5 kg Intake: IV 1805.0 / 1805.0 D5W/1/2NS + KCL 20 mEq Inj 1, 1000 / 1000 000 ML @ 100 mls/hr IV.CONT . Q10H [facility] Rx#:[id number] Gentamicin Inj 100 MG In NS Inj 205.0 / 205.0 100 ML @ 200 mls/hr IV.SIG Q8H [facility] Rx#:[id number] Zyvox 600 mg Premix 300 ML @ 600 / 600 300 mls/hr IV.SIG Q12H [facility] Rx#: [id number] Oral 1200 / 1200 240 / 240 Other: # Voids 5 3 Narrative: Gen.: No acute distress Cardiovascular: Regular rate and rhythm. No murmurs, rubs or gallops. Respiratory: Lungs clear to auscultation bilaterally. Abdomen: Soft, tender to palpation in the suprapubic region, nondistended. : Mild right CVA tenderness Musculoskeletal: No gross deformities. No edema. Skin: No obvious rashes or erythema. Neuro: Sensory and motor grossly intact. Cranial nerves II through XII grossly intact. Results Procedures completed during hospitalization: Cystoscopy with right retrograde pyelogram and right double-J stent insertion Labs on day of discharge: Preliminary micro results at discharge 10/07/17 18:40 Aerobic Blood Culture - Preliminary Blood - Peripheral No growth in 4 days Anaerobic Blood Culture - Preliminary No growth in 4 days 10/07/17 18:45 Aerobic Blood Culture - Preliminary Blood - Peripheral No growth in 4 days Anaerobic Blood Culture - Preliminary No growth in 4 days - Impressions ITS Impressions Abdomen/Pelvis CT 10/07/17 18:35 CONCLUSION: 1. Abnormal appearance to the right kidney with 2 calcified stones located in the midpole and extrarenal pelvis, inhomogeneous enhancement of the parenchyma, and induration of the perinephric fat. The induration of the fat is a new finding when compared to prior CT 09/11/2017 2. Mild amount of free fluid in the dependent pelvis is also a new finding.. Discharge Plan - Discharge Disposition Patient Disposition: 01 Discharge Home - Discharge Condition Condition: Stable - Discharge Order Discharge Orders: Discharge Order (Routine); Ordered 10/11/17 Ordered By: Juancho Gu - Physicians Team Primary Care Provider: Brian Ramirez Attending Provider: Juancho Gu Other Providers: Shan Pride DO ; Josefina Alexander MD
[2017-10-11] MEDS ORDERED: Pharmacy Ordered Lab Info OTHER ONE ×2 (16:30→18:00)
== END 2017-10-11 14:51 | disposition home or self-care (01) ==
LOC: NEPE 14:34 → NEDA 22:09 → INTOOBSV 23:16 → N07 10-08 00:10
PROVIDERS: ADMIT Internal Medicine; ATTEND Internal Medicine